=== PATIENT | male | born 1965 | race Caucasian/White ===

== ENCOUNTER 2021-01-19 07:03 | Emergency (ER) | payer OTHER, SELFPAY ==
[2021-01-19 07:49] VITALS: BP 150/88; PULSE 76; RESP 18; TEMP 36.6; O2SAT 97; BMI 28.7
--- NOTE | 2021-01-19 07:55 | ED.GENADULT ---
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 55-year-old male came in with a rectal pain that started 2 days ago, pain described as mild and intermittent only with bowel movements, pain is dull aching/pressure only with bowel movement, pain sometimes associated with bright red blood while wiping with the toilet paper, no viktoria rectal bleeding, no fever, no chills. Related Data Previous Rx's Medication Instructions Recorded nystatin 1 appl TOPICAL TID #30 g 01/19/21 Allergies Allergy/AdvReac Type Severity Reaction Status Date / Time oxycodone [Percocet] Allergy Unknown Unknown Verified 01/19/21 07:16 No Known Allergies Allergy Unverified 06/17/20 16:44 Review of Systems Review of Systems: All other systems are reviewed and are negative Constitutional: Reports as per HPI and Reports no additional constitutional complaints Eyes: Reports as per HPI and Reports no additional eye complaints Reports system reviewed and no additional complaints, except as documented Cardiovascular: Reports as per HPI and Reports no additional cardiovascular complaints Respiratory: Reports as per HPI and Reports no additional respiratory complaints Gastrointestinal: Reports as per HPI and Reports no additional gastrointestinal complaints Genitourinary: Reports no additional female genitourinary complaints Musculoskeletal: Reports no additional musculoskeletal complaints Skin/Breast: Reports system reviewed and no additional complaints, except as docu Psychiatric: Reports no additional psychiatric complaints Endocrine: Reports no additional endocrine complaints Hematologic/Lymphatic: Reports no additional hematologic/lymphatic complaints Allergic/Immunologic: Reports no additional allergic/immunologic complaints Reports system reviewed and no additional complaints, except as documented and Reports Abnormal speech present [facility] Past Medical History Medical History Asthma Diabetes HTN (hypertension) Social History Social History Alcohol intake: current Alcohol intake frequency: holidays/special occasions only Smoking Status: Never smoker Use of substances other than those prescribed or required for medical reasons: No Advance Directives: Yes Advance Directives Information Provided: Yes Advance Directives on File: No Physical Exam Vital Signs: Vital Signs: Last Vital Signs Temp 98.0 F 01/19/21 08:19 Pulse 76 01/19/21 08:19 Resp 18 01/19/21 08:19 BP 150/80 H 01/19/21 08:19 Pulse Ox 98 01/19/21 08:19 Body Mass Index 28.7 Vital signs have been reviewed as appeared to be correct. Blood pressure is elevated. Heart rate normal. Respiration rate normal. Temperature normal. Oxygen saturation normal. Appearance: Alert. Oriented X3. No acute distress. Head: Normal external exam. Normocephalic. Atraumatic. No Multani signs noted. No raccoon eyes noted Eyes: PERRLA. EOMI. Conjunctiva and sclera normal. Eyelids normal. ENT: TM's Normal. Pharynx normal. Uvula midline. Moist mucous membranes. No trismus noted. No drooling noted. No muffled voice noted. Neck: Normal inspection. Neck supple. FROM. No adenopathy. Thyroid Normal. No meningeal signs. No neck mass noted. CVS: Normal heart rate and rhythm. Heart sound normal. No murmurs noted. Pulses normal throughout. Respiratory: No respiratory distress. Painless inspiration. Breath sounds normal. No wheezes/rales/rhonchi noted. Chest nontender. No accessory muscle usage noted or decreased air movement noted. Abdomen: Soft and nontender. Bowel sounds normal in all 4 quadrants. No distention noted. No organomegaly noted. No visible injury noted. Rectal exam: 2 x 2 cm external hemorrhoid at 03:00 o'clock, mild tenderness to touch, no thrombosis is appreciated. : Uncircumcised, redness at the glans penis with white cottage cheese cover. Back: No CVA tenderness. Full range of motion noted. Skin: Skin warm and dry. Normal skin color. Normal skin turgor. No rashes/lesions/lacerations noted. Extremities: No lower extremity edema. Extremities exhibit normal range of motion. Extremities nontender. Neuro: Oriented X 3. No motor deficit. No sensory deficit. Reflexes normal. Course Course Course Narrative: Assessment and plan. 55-year-old male came in for evaluation of noncomplicated external hemorrhoid, will refer to surgery as an outpatient. Patient is diabetic with a mild noncomplicated balanitis. Patient found to be hyperglycemic in the emergency department he claimed that he did not take his glucose fashion this morning, patient was offered 5 units of insulin subQ but patient declined. Discharge Plan Discharge Clinical Impression: Balanitis Hemorrhoid Qualifiers: Hemorrhoid type: unspecified Qualified Code(s): K64.9 - Unspecified hemorrhoids Patient Disposition: Home, Self-Care Instructions: Hemorrhoids (ED) Prescriptions: New nystatin 100,000 unit/gram ointment 1 appl topical TID Qty: 30 RF: 0 Referrals: Saul Nash MD [Physician] - 2 days
[2021-01-19 08:19] VITALS: BP 150/80; PULSE 76; RESP 18; TEMP 36.7; O2SAT 98
[2021-01-19] MEDS: oxyCODONE HCl Immed Release 5 MG TABLET PO (08:26)
--- NOTE | 2021-01-19 08:37 | PC.NURSE ---
pt seen by provider, medicated per emar. pt asking to speak w provider again prior to discharge, provider aware.
[2021-01-19 09:04] LABS: Glucose, Whole Blood 372 mg/dL (60-115)
--- NOTE | 2021-01-19 09:04 | PC.NURSE ---
POC 372. Pt states that he did not take his metformin this morning and does not want any insulin at this time.
== END 2021-01-19 09:22 | disposition home or self-care (01) ==
PROVIDERS: Emergency Provider Emergency Medicine; PCP Family Medicine
DX: N48.1 Balanitis (principal); K64.4 Residual hemorrhoidal skin tags; E11.65 Type 2 diabetes mellitus with hyperglycemia; I10 Essential (primary) hypertension; J45.909 Unspecified asthma, uncomplicated; Z79.4 Long term (current) use of insulin
CPT/HCPCS: 82947; 99283; 99284

== ENCOUNTER → 2021-01-26 11:31 | Outpatient (BNVA) | payer OTHER, SELFPAY | PROVIDERS: PCP Family Medicine; Visit Provider Surgery | DX: K62.89 Other specified diseases of anus and rectum (principal) | CPT/HCPCS: 46600; 99202 ==

== ENCOUNTER 2021-02-08 06:04 | Day surgery (SDC) | payer OTHER, SELFPAY ==
[2021-02-02 12:56] VITALS: BMI 36.8
--- NOTE | 2021-02-07 08:30 | HO.ANESPROP2 ---
Documented by User: Ruth Araya 02/07/21 08:30 HPI - Anesthesia Eval Consult details Narrative: 55yo M for EUA, Excision of Anal Mass PMFSH Active Problems Active Problems: All Active Problems (Updated 02/02/21 @ 12:58 by Rebecca Griffin) Mass of anus (Acute) High BMI (Acute) Past Medical History Medical History Asthma Diabetes Elevated cholesterol High BMI History of COVID-19 HTN (hypertension) Mass of anus Family History Family History Mother Breast cancer Surgical History Surgical History H/O colonoscopy History of knee surgery Hx of umbilical hernia repair Social History Social History Alcohol intake: current Alcohol intake frequency: holidays/special occasions only Smoking Status: Never smoker Advance Directives Information Provided: No Meds Allergies Allergy/AdvReac Type Severity Reaction Status Date / Time No Known Allergies Allergy Verified 02/08/21 06:14 Home Medications Medication Instructions Recorded Confirmed Last Taken Type aspirin 81 mg tablet,delayed 81 mg PO DAILY 01/26/21 02/02/21 Unknown History release blood pressure test kit-large #1 01/26/21 01/26/21 Unknown History blood sugar diagnostic #10 ea 01/26/21 01/26/21 Unknown History blood-glucose meter #1 ea 01/26/21 01/26/21 Unknown History hydrochlorothiazide 25 mg tablet 25 mg PO DAILY 01/26/21 02/02/21 Unknown History hydrocortisone 1 % topical cream 1 appl TOPICAL DAILY 01/26/21 02/02/21 Unknown History lisinopril 30 mg tablet 30 mg PO DAILY 01/26/21 02/02/21 Unknown History metformin 1,000 mg tablet 1,000 mg PO BID 01/26/21 02/02/21 Unknown History pravastatin 20 mg tablet 20 mg PO BEDTIME 01/26/21 02/02/21 Unknown History Exam Exam Date and Time: February 07, 2021 0830 Height,Weight and Vital Signs: Height 5 ft 8 in Weight 110 kg Assessment and Plan Assessment Anesthesia Assessment: Chart Reviewed Documented by User: Shruthi Pelaez 02/08/21 07:21 PMFSH Past Medical History Medical History Asthma Diabetes Elevated cholesterol High BMI History of COVID-19 HTN (hypertension) Mass of anus Family History Family History Mother Breast cancer Surgical History Surgical History H/O colonoscopy History of knee surgery Hx of umbilical hernia repair Social History Social History Alcohol intake: current Alcohol intake frequency: holidays/special occasions only Smoking Status: Never smoker Advance Directives Information Provided: No Meds Allergies Allergy/AdvReac Type Severity Reaction Status Date / Time No Known Allergies Allergy Verified 02/08/21 06:14 Home Medications Medication Instructions Recorded Confirmed Last Taken Type aspirin 81 mg tablet,delayed 81 mg PO DAILY 01/26/21 02/02/21 Unknown History release blood pressure test kit-large #1 01/26/21 01/26/21 Unknown History blood sugar diagnostic #10 01/26/21 01/26/21 Unknown History blood-glucose meter #1 ea 01/26/21 01/26/21 Unknown History hydrochlorothiazide 25 mg tablet 25 mg PO DAILY 01/26/21 02/02/21 Unknown History hydrocortisone 1 % topical cream 1 appl TOPICAL DAILY 01/26/21 02/02/21 Unknown History lisinopril 30 mg tablet 30 mg PO DAILY 01/26/21 02/02/21 Unknown History metformin 1,000 mg tablet 1,000 mg PO BID 01/26/21 02/02/21 Unknown History pravastatin 20 mg tablet 20 mg PO BEDTIME 01/26/21 02/02/21 Unknown History Exam Airway Mallampati Class: III TM Dist: >3cm Neck ROM: Full Partial: Upper and Lower
[2021-02-08] VITALS (7 sets, daily range): BP systolic 114–152; BP diastolic 68–86; PULSE 76–100; RESP 16; TEMP 36.2–36.3; O2SAT 96–99
[2021-02-08 06:16] LABS: Glucose, Whole Blood 331 mg/dL (60-115)
[2021-02-08] MEDS: Lactated Ringers 1,000 ML 100 ML IVCONT (06:45)
[2021-02-08] MEDS: Insulin Regular, Human 100 UNIT/ML 3 ML VIAL SUBCUT (07:34)
--- NOTE | 2021-02-08 07:34 | MHC.SHP ---
Pre-Procedural Eval Section B Chief Complaint: Mass of anus Allergies: Allergies Allergy/AdvReac Type Severity Reaction Status Date / Time No Known Allergies Allergy Verified 02/08/21 06:14 Plan I have reviewed the history and physical and performed a pertinent physical examination on my patient. No changes have occurred unless specified.
--- NOTE | 2021-02-08 08:25 | W.PM.OPN ---
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 This was on the anal verge and appeared to be chronically sclerosed hemorrhoid versus a fibroepithelial polyp. He describes difficulty with hygiene as well as discomfort. He wanted to proceed with excision. He understood the technique of exam under anesthesia and excision of this anal mass. He was aware of the risks, benefits, and alternatives. He was brought to the operating room and placed in prone carley-knife position under general anesthesia via endotracheal tube. The perianal area was prepped and draped in the usual sterile fashion. A surgical timeout was done. The patient received Cefotan 2g IV preop. Examination of the anal orifice revealed a mass at the verge, soft, nonindurated, about 2 cm extending into the anoderm. I inserted the Meseret-Patterson retractor and examined the anal canal circumferentially. There were not of internal hemorrhoidal columns on both the left and right side with some external hemorrhoidal component. There were no fissures, induration or any other lesion. The mass on the left side was gently grasped with a Penningtong grasper. I made a figure of 8 stitch at the pedicle just proximal to the dentate line. I made an incision around this mass using a shayy [address] the perianal skin. I excised this mass above the plane of the sphincters using scissors. I closed the incision with a running chromic 3-0 stitch. Additional hemostatic figure of 8 sutures were placed. Once hemostasis was ensured, I infiltrated the perianal area with Marcaine .5% for postop analgesia and the procedure was completed. The patient tolerated the procedure well. Initial and final counts of sponges and instruments were correct. EBL was about 15 cc. The patient was extubated without difficulty and transferred to the with stable VS.
--- NOTE | 2021-02-08 08:35 | P.BOP_ITS ---
Brief Operative Note Date of Service: 02/08/21 Pre-op diagnosis: anal mass Post-op diagnosis: same Procedure: EUA, exc of anal mass Surgeon: Don Schulte MD Anesthesia: GETA Was an Office Services Clerk used for this Procedure?: No Estimated blood loss (mL): 15 Pathology: other (anal mass) Condition: stable Disposition: PACU
[2021-02-08] MEDS: oxyCODONE HCl Immed Release 5 MG TABLET 10 MG PO (09:00)
== END 2021-02-08 10:20 | disposition home or self-care (01) ==
PROVIDERS: PCP Family Medicine; Visit Provider Surgery
PROC: (CPT 46922; principal; 2021-02-08 07:30)
DX: K62.89 Other specified diseases of anus and rectum (principal); J45.909 Unspecified asthma, uncomplicated; I10 Essential (primary) hypertension; E11.9 Type 2 diabetes mellitus without complications; Z79.84 Long term (current) use of oral hypoglycemic drugs; Z79.82 Long term (current) use of aspirin; Z79.899 Other long term (current) drug therapy; Z86.16 Personal history of COVID-19
CPT/HCPCS: 46922; 82947; 88305; J1885; J2250; J2405; J3010

== ENCOUNTER → 2021-02-23 11:00 | Outpatient (BNVA) | payer OTHER, SELFPAY | PROVIDERS: PCP Family Medicine; Referring Provider Family Medicine; Visit Provider Surgery | DX: K62.89 Other specified diseases of anus and rectum (principal) | CPT/HCPCS: 99212 ==

== ENCOUNTER 2021-06-15 09:03 | Emergency (ER) | payer OTHER, SELFPAY ==
--- NOTE | ~2021-06-15 | US_ITS ---
EXAMINATION: US SCROTUM CLINICAL INFORMATION: Left testicle pain. COMPARISON: Previous scrotal ultrasound November 2018. TECHNIQUE: A sonogram of the scrotum was performed assessing jorge-scale appearance and color Doppler flow. Spectral Doppler analysis of the arterial and venous flow were performed in the testes bilaterally. FINDINGS: RIGHT: Right testicle measures 2.7 x 1.4 x 1.9 cm, volume 3.8 mL and is smaller than the left. No focal testicular parenchymal lesions are visualized. The contour of the anterior right testicle is slightly irregular and echogenicity is slightly heterogeneous. Spectral Doppler analysis of the arterial and venous flow is normal in the right testis. Right epididymal head is normal in size. No right hydrocele or varicocele is seen. Right epididymal Doppler flow is normal. There is a 0.6 x 0.5 x 0.4 cm simple cyst in the right anterior scrotum. LEFT: Left testicle measures 3.6 x 1.9 x 2.9 cm, volume 10 mL. No focal testicular parenchymal lesions are visualized. Spectral Doppler analysis of the arterial and venous flow is normal in the left testis. Left epididymal head is normal in size. No left hydrocele is seen. There is a small left varicocele. Left epididymal Doppler flow is normal. US/US scrotum doppler IMPRESSION: Small slightly heterogeneous right testicle, question changes related to old trauma or infection. 5 mm simple right scrotal cyst. Small left varicocele.
--- NOTE | ~2021-06-15 | US_ITS ---
EXAMINATION: US SCROTUM CLINICAL INFORMATION: Left testicle pain. COMPARISON: Previous scrotal ultrasound November 2018. TECHNIQUE: A sonogram of the scrotum was performed assessing jorge-scale appearance and color Doppler flow. Spectral Doppler analysis of the arterial and venous flow were performed in the testes bilaterally. FINDINGS: RIGHT: Right testicle measures 2.7 x 1.4 x 1.9 cm, volume 3.8 mL and is smaller than the left. No focal testicular parenchymal lesions are visualized. The contour of the anterior right testicle is slightly irregular and echogenicity is slightly heterogeneous. Spectral Doppler analysis of the arterial and venous flow is normal in the right testis. Right epididymal head is normal in size. No right hydrocele or varicocele is seen. Right epididymal Doppler flow is normal. There is a 0.6 x 0.5 x 0.4 cm simple cyst in the right anterior scrotum. LEFT: Left testicle measures 3.6 x 1.9 x 2.9 cm, volume 10 mL. No focal testicular parenchymal lesions are visualized. Spectral Doppler analysis of the arterial and venous flow is normal in the left testis. Left epididymal head is normal in size. No left hydrocele is seen. There is a small left varicocele. Left epididymal Doppler flow is normal. US/US scrotum IMPRESSION: Small slightly heterogeneous right testicle, question changes related to old trauma or infection. 5 mm simple right scrotal cyst. Small left varicocele.
[2021-06-15 09:23] VITALS: BP 135/70; PULSE 78; RESP 16; TEMP 36.6; O2SAT 98; BMI 36.9
[2021-06-15 09:46] LABS: MANUAL DIFF FLAG NO
[2021-06-15 09:47] LABS: Basophils Absolute Auto 0.1 X10*3/uL (0.0-0.2); Basophils Percent Auto 0.6 % (0-2); Eosinophils Absolute Auto 0.4 X10*3/uL (0.0-0.4); Eosinophils Percent Auto 4.5 % (0-4); Hematocrit 42.9 % (42-52); Hemoglobin 14.6 g/dl (14.0-18.0); Imm Gran Abs Auto 0.03 X10*3/uL (0.00-0.03); Imm Gran Pct Auto 0.3 % (0.0-0.4); Lymphocytes Absolute Auto 1.9 X10*3/uL (1.2-4.9); Lymphocytes Percent Auto 21.7 % (20-40); Mean Corpuscular Hemoglobin 29.7 pg (27.0-33.0); Mean Corpuscular Volume 87.4 fL (80-98); Mean Platelet Volume 10.4 fL (9.4-12.4); Monocytes Absolute Auto 0.5 X10*3/uL (0.1-1.2); Monocytes Percent Auto 5.8 % (2-11); Neutrophils Absolute Auto 5.9 X10*3/uL (2.0-8.3); Neutrophils Percent Auto 67.1 % (45-73); Platelet Count 289 X10*3/uL (160-400); Red Blood Count 4.91 X10*6/uL (4.60-5.80); Red Cell Distribution Width 12.7 % (11.0-16.0); White Blood Count 8.8 X10*3/uL (4.8-10.8)
[2021-06-15 09:48] LABS: Appearance Urine CLEAR; Color Urine YELLOW; Glucose Urine UA NEG (NEG); Leukocyte Esterase Urine NEG (NEG); Nitrite Urine NEG (NEG); Urine Blood NEG (NEG); Urine Ketones NEG (NEG); Urine Protein NEG (NEG-TRACE)
[2021-06-15 10:06] LABS: Anion Gap 15 (12-20); Blood Urea Nitrogen 22 mg/dL (9-16); Calcium 9.9 mg/dL (8.4-10.2); Carbon Dioxide 22 mmol/L (22-29); Chloride 105 mmol/L (96-108); Creatinine Clr Calc Pharmacy 94.2; Estimated Glomerular Filt Rate > 60; Glucose Random 207 mg/dL (60-115); Potassium 4.5 mmol/L (3.3-5.1); Sodium 137 mmol/L (135-145)
--- NOTE | 2021-06-15 10:21 | ED.ABDPAIN ---
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 Mode of arrival: ambulatory Limitations: no limitations History of Present Illness MD elicited complaint: other (L testicular and scrotal pain) Pertinent past history: none Onset (ago): day(s) (2) Pain Consistency: intermittent Location: suprapubic and groin Severity: moderate Quality: aching Radiation: none Exacerbating factors: nothing Relieving factors: nothing Associated symptoms: nausea Related Data Home Medications Medication Instructions Recorded Confirmed aspirin 81 mg tablet,delayed 81 mg PO DAILY 01/26/21 02/02/21 release blood pressure test kit-large #1 ea 01/26/21 01/26/21 blood sugar diagnostic #10 ea 01/26/21 01/26/21 blood-glucose meter #1 ea 01/26/21 01/26/21 hydrochlorothiazide 25 mg tablet 25 mg PO DAILY 01/26/21 02/02/21 hydrocortisone 1 % topical cream 1 appl TOPICAL DAILY 01/26/21 02/02/21 lisinopril 30 mg tablet 30 mg PO DAILY 01/26/21 02/02/21 metformin 1,000 mg tablet 1,000 mg PO BID 01/26/21 02/02/21 pravastatin 20 mg tablet 20 mg PO BEDTIME 01/26/21 02/02/21 Previous Rx's Medication Instructions Recorded nystatin 100,000 unit/gram topical 1 appl TOPICAL TID #30 g 01/19/21 ointment docusate sodium 100 mg capsule 100 mg PO BID #60 cap 02/08/21 (Colace) ibuprofen 600 mg tablet 600 mg PO Q6H PRN #30 tab 02/08/21 oxycodone-acetaminophen 5 mg-325 1 - 2 tab PO Q4-6H PRN #30 tab 02/08/21 mg tablet (Percocet) levofloxacin 500 mg tablet 500 mg PO DAILY 7 Days #7 tab 06/15/21 Allergies Allergy/AdvReac Type Severity Reaction Status Date / Time No Known Allergies Allergy Verified 02/23/21 11:19 Review of Systems Review of Systems Constitutional : No Weight loss, No Fever, No Chills ENT/Mouth : No sore throat, No Rhinorrhea Eyes: No Swelling, No Redness Cardiovascular : No Chest Pain, No SOB, NoEdema Respiratory : No Cough, No Sputum, No Wheezing Gastrointestinal : Positive Nausea, no Vomiting, no Diarrhea, no abdominal Pain, No Hematochezia, No Melena Genitourinary : No Dysuria, No Urinary Frequency, No Hematuria, No Urgency , pos L scrotal pain Musculoskeletal : No joint pain, No Myalgias, No Joint Swelling Skin : No Skin Lesions, No rash Neuro : No Weakness, No Numbness, No Dizziness, No Headache Psych : No Anxiety/Panic, No Depression Heme/Lymph: No Bruising, No Lymphadenopathy Endocrine : No Polyuria, No Polydipsia All other systems reviewed and are negative. Physical Exam Vital Signs: Vital Signs: Last Vital Signs Temp 98.3 F 06/15/21 10:59 Pulse 68 06/15/21 13:08 Resp 19 06/15/21 13:08 BP 124/83 06/15/21 13:08 Pulse Ox 97 06/15/21 13:08 Body Mass Index 36.9 Appearance: Alert. Oriented X3. No acute distress. Eyes: Pupils equal, round and reactive to light. ENT: Pharynx normal. Neck: Normal inspection. Neck supple. CVS: Normal heart rate and rhythm. Pulses normal. Respiratory: No respiratory distress. Breath sounds normal. Abdomen: Soft and nontender. : L scrotal and spermatic cord ttp no mass/color changes no crepitus or signs of infection noted Skin: Skin warm and dry. Normal skin color. Normal skin turgor. Extremities: No lower extremity edema. No calf ttp Neuro: Oriented X 3. No motor deficit. No sensory deficit. Course Course Course Narrative: groin pain reported pain over spermatic cord - will treat as possible epidydimmitis - start on levofloxacin and refer to PCP again has no abdominal pain MDM - Abdominal Pain MDM Narrative Medical decision making narrative: 55 yo male with DM, HTN here with 2 days of L scrotal pain - at this time will need labs, UA, CT NG though likely E. Coli given his age. US to evaluate cord itself. He is not toxic he has no mass seen in L groin and has no abd ttp dispo per results and findings Lab Data Result diagrams: 06/15/21 09:33 06/15/21 09:33 Labs: Lab Results 06/15/21 06/15/21 06/15/21 Range/Units 09:33 09:33 09:33 WBC 8.8 (4.8-10.8) X10*3/uL RBC 4.91 (4.60-5.80) X10*6/uL Hgb 14.6 (14.0-18.0) g/dl Hct 42.9 (42-52) % MCV 87.4 (80-98) fL MCH 29.7 (27.0-33.0) pg MCHC 34.0 (31.0-36.0) g/dl RDW 12.7 (11.0-16.0) % Plt Count 289 (160-400) X10*3/uL MPV 10.4 (9.4-12.4) fL Immature Gran % (Auto) 0.3 (0.0-0.4) % Neut % (Auto) 67.1 (45-73) % Lymph % (Auto) 21.7 (20-40) % Dolores % (Auto) 5.8 (2-11) % Eos % (Auto) 4.5 H (0-4) % Baso % (Auto) 0.6 (0-2) % Lymph # (Auto) 1.9 (1.2-4.9) X10*3/uL Dolores # (Auto) 0.5 (0.1-1.2) X10*3/uL Eos # (Auto) 0.4 (0.0-0.4) X10*3/uL Baso # (Auto) 0.1 (0.0-0.2) X10*3/uL Abs Immat Gran (auto) 0.03 (0.00-0.03) X10*3/uL Absolute Neuts (auto) 5.9 (2.0-8.3) X10*3/uL Absolute Nucleated RBC 0.000 (0.0-0.012) X10*3/uL Nucleated RBC % (auto) 0.0 (0.0-0.2) /100WBC Sodium 137 (135-145) mmol/L Potassium 4.5 (3.3-5.1) mmol/L Chloride 105 (96-108) mmol/L Carbon Dioxide 22 (22-29) mmol/L Anion Gap 15 (12-20) BUN 22 H (9-16) mg/dL Creatinine 1.10 (0.5-1.4) mg/dL Estim Creat Clear Calc 94.2 Estimated GFR > 60 Random Glucose 207 H (60-115) mg/dL Calcium 9.9 (8.4-10.2) mg/dL Total Bilirubin 0.6 (0.0-1.0) mg/dL Direct Bilirubin 0.2 (0.0-0.5) mg/dL AST 21 (5-37) U/L ALT 16 (0-40) U/L Alkaline Phosphatase 67 (39-117) U/L Total Protein 6.9 (6.5-8.0) g/dL Albumin 4.1 (3.5-5.0) g/dL Lipase 33 (8-78) U/L Urine Color YELLOW Urine Appearance CLEAR Urine pH 6.0 (5.0-8.0) Ur Specific [place] 1.020 (1.005-1.025) Urine Protein NEG (NEG-TRACE) MG/DL Urine Glucose (UA) NEG (NEG) MG/DL Urine Ketones NEG (NEG) MG/DL Urine Blood NEG (NEG) Urine Nitrite NEG (NEG) Ur Leukocyte Esterase NEG (NEG) Discharge Plan Discharge Clinical Impression: Left varicocele, Epididymitis Patient Disposition: Home, Self-Care Instructions: Epididymitis (ED), Varicocele (ED) Additional Instructions: return to ED for any worsening symptoms or concerns Prescriptions: New levofloxacin 500 mg tablet 500 mg PO DAILY 7 Days Qty: 7 RF: 0 No Action docusate sodium [Colace] 100 mg capsule 100 mg PO BID Qty: 60 RF: 2 ibuprofen 600 mg tablet 600 mg PO Q6H PRN (Reason: pain) Qty: 30 RF: 0 oxycodone-acetaminophen [Percocet] 5-325 mg tablet 1 - 2 tab PO Q4-6H PRN (Reason: pain) Qty: 30 RF: 0 nystatin 100,000 unit/gram ointment 1 appl topical TID Qty: 30 RF: 0 lisinopril 30 mg tablet 30 mg PO DAILY RF: 0 hydrochlorothiazide 25 mg tablet 25 mg PO DAILY RF: 0 aspirin 81 mg tablet,delayed release (DR/EC) 81 mg PO DAILY RF: 0 metformin 1,000 mg tablet 1,000 mg PO BID RF: 0 (DME) FreeStyle Lite Strips Strip See Rx Instructions ea Not Applicable .GeneraytorPPLY Qty: 10 RF: 0 pravastatin 20 mg tablet 20 mg PO BEDTIME RF: 0 hydrocortisone 1 % cream 1 appl topical DAILY RF: 0 (DME) blood pressure test kit-large Kit See Rx Instructions ea .ROUTE .MEDSUPPLY Qty: 1 RF: 0 (DME) blood-glucose meter Kit See Rx Instructions ea Not Applicable .MEDSUPPLY Qty: 1 RF: 0 Referrals: Christian Mohamud MD [Physician] - 2 weeks (if not better) Print Language: [place] [facility] Past Medical History Attestation statement: The following information was validated with the patient. Medical History Asthma Diabetes Elevated cholesterol High BMI History of COVID-19 HTN (hypertension) Mass of anus Surgical History H/O colonoscopy History of excision of mass History of knee surgery Hx of umbilical hernia repair Family History Family History Mother Breast cancer Social History Social History (Updated 06/15/21 @ 10:21 by Mela Mckeon DO) Alcohol intake: current Alcohol intake frequency: holidays/special occasions only Patient Tobacco Use Status: Never used Tobacco Advance Directives: No Advance Directives Information Provided: No
[2021-06-15 10:47] LABS: Alanine Aminotransferase 16 U/L (0-40); Albumin Level 4.1 g/dL (3.5-5.0); Alkaline Phosphatase 67 U/L (39-117); Aspartate Amino Transferase 21 U/L (5-37); Bilirubin Direct 0.2 mg/dL (0.0-0.5); Bilirubin Total 0.6 mg/dL (0.0-1.0); Lipase 33 U/L (8-78); Total Protein 6.9 g/dL (6.5-8.0)
[2021-06-15 10:59] VITALS: BP 122/69; PULSE 74; RESP 16; TEMP 36.8; O2SAT 98
[2021-06-15] MEDS: Acetaminophen 325 MG TABLET 650 MG PO (11:13)
[2021-06-15 13:08] VITALS: BP 124/83; PULSE 68; RESP 19; O2SAT 97
[2021-06-15 13:45] VITALS: BP 133/78; PULSE 77; RESP 18; O2SAT 98
[2021-06-15 13:58] LABS: CT PCR NOT DETECTED (Not Detect.); NG PCR NOT DETECTED (Not Detect.)
== END 2021-06-15 13:50 | disposition home or self-care (01) ==
PROVIDERS: Emergency Provider Emergency Medicine; PCP Family Medicine
DX: N45.1 Epididymitis (principal); I86.1 Scrotal varices; N50.812 Left testicular pain; N50.811 Right testicular pain; Z79.899 Other long term (current) drug therapy; Z79.82 Long term (current) use of aspirin
CPT/HCPCS: 36415; 76870; 80048; 80076; 81003; 83690; 85025; 87491; 87591; 93975; 99283; 99284

== ENCOUNTER 2023-04-09 | Outpatient (REF) | payer OTHER, SELFPAY | END 2023-04-09 00:01 | disposition home or self-care (01) | LOC: HO.HHCL | PROVIDERS: Visit Provider Internal Medicine | DX: J39.2 Other diseases of pharynx (principal) | CPT/HCPCS: 87070 ==

== ENCOUNTER 2023-06-07 11:49 | Emergency (ER) | payer OTHER, SELFPAY ==
--- NOTE | ~2023-06-07 | XR_ITS ---
EXAMINATION: XR CHEST 2 VIEW CLINICAL INFORMATION: Chest pain COMPARISON: 06/01/2020 TECHNIQUE: PA and lateral views of the chest obtained. FINDINGS: A 9 mm radiodense nodule at the right lung base is unchanged. Otherwise, the lungs are clear. There are no pleural effusions. The cardiomediastinal silhouette is stable. XR/XR chest 2V IMPRESSION: No acute cardiopulmonary disease or interval change since 06/01/2020.
--- NOTE | 2023-06-07 11:52 | ECG_ITS ---
Test Reason : CP Blood Pressure : / mmHG Vent. Rate : 109 BPM Atrial Rate : 109 BPM P-R Int : 150 ms QRS Dur : 084 ms QT Int : 340 ms P-R-T Axes : 043 -12 027 degrees QTc Int : 457 ms Sinus tachycardia Incomplete right bundle branch block Possible Inferior infarct (cited on or before 24-APR-2016) Possible Anterolateral infarct , age undetermined Abnormal ECG When compared with ECG of 24-APR-2016 14:31, Vent. rate has increased BY 40 BPM Questionable change in initial forces of Inferior leads Referred By: Vickie Lewis Electronically Signed By:SHIRA PLASCENCIA
[2023-06-07 12:06] VITALS: BP 148/75; PULSE 110; RESP 20; TEMP 36.8; O2SAT 98; BMI 32.2
[2023-06-07 12:06] LABS: MANUAL DIFF FLAG NO
--- NOTE | 2023-06-07 12:07 | ED_ITS ---
HPI - Chest Pain General Chief Complaint: Psychiatric Symptoms Stated Complaint: chest pain Time Seen by Provider: 06/07/23 17:02 Source: patient and family Mode of arrival: ambulatory Limitations: no limitations History of Present Illness HPI narrative: Patient comes to the emergency room complaining of palpitations, chest pressure that has been going on for 12+ hours. Patient states that he has severe anxiety, patient's states that the patient takes Haldol for delusions of persecution. Related Data Home Medications Medication Instructions Recorded Confirmed aspirin 81 mg tablet,delayed 81 mg PO DAILY 01/26/21 02/02/21 release blood pressure test kit-large #1 ea 01/26/21 01/26/21 blood sugar diagnostic #10 ea 01/26/21 01/26/21 blood-glucose meter #1 ea 01/26/21 01/26/21 hydrochlorothiazide 25 mg tablet 25 mg PO DAILY 01/26/21 02/02/21 hydrocortisone 1 % topical cream 1 appl topical DAILY 01/26/21 02/02/21 lisinopril 30 mg tablet 30 mg PO DAILY 01/26/21 02/02/21 metformin 1,000 mg tablet 1,000 mg PO BID 01/26/21 02/02/21 pravastatin 20 mg tablet 20 mg PO BEDTIME 01/26/21 02/02/21 Previous Rx's Medication Instructions Recorded nystatin 100,000 unit/gram topical 1 appl topical TID #30 grams 01/19/21 ointment docusate sodium 100 mg capsule 100 mg PO BID #60 caps 02/08/21 (Colace) ibuprofen 600 mg tablet 600 mg PO Q6H PRN pain #30 tabs 02/08/21 oxycodone-acetaminophen 5 mg-325 1 - 2 tab PO Q4-6H PRN pain #30 02/08/21 mg tablet (Percocet) tabs levofloxacin 500 mg tablet 500 mg PO DAILY 7 days #7 tabs 06/15/21 Allergies Allergy/AdvReac Type Severity Reaction Status Date / Time No Known Allergies Allergy Verified 02/23/21 11:19 Review of Systems 2 Review of Systems: Constitutional : No Weight loss, No Fever, No Chills, No Night Sweats, No Fatigue, No Malaise ENT/Mouth : No Hearing loss, No Ear Pain, No Nasal Congestion, No Sinus Pain, No Hoarseness, No sore throat, No Rhinorrhea, No Swallowing Difficulty Eyes: No Eye Pain, No Swelling, No Redness, No Foreign Body, No Discharge, No Vision Changes Cardiovascular : Complaining of 12+ hours of chest pain/pressure/anxiety No SOB, No Dyspnea on Exertion, No Orthopnea, No Edema, No Palpitations Respiratory : No Cough, No Sputum, No Wheezing, No Smoke Exposure, No Dyspnea Gastrointestinal : No Nausea, No Vomiting, No Diarrhea, No Constipation, No abdominal Pain, No Hematochezia, No Melena Genitourinary : no irregular bleeding, No Dysuria, No Urinary Frequency, No Hematuria, No Urinary Incontinence, No Urgency, No Flank Pain, No Urinary Flow Changes, No Hesitancy Musculoskeletal : No joint pain, No Myalgias, No Joint Swelling Skin : No Skin Lesions, No rash Neuro : No Weakness, No Numbness, No Paresthesias, No Loss of Consciousness, No Dizziness, No Headache Psych : Complaining of continued his anxiety, No Depression, No SI/HI/AH/VH, No Social Issues, Heme/Lymph: No Bruising, No Bleeding,No Lymphadenopathy Endocrine : No Polyuria, No Polydipsia, No Temperature Intolerance [facility] Past Medical History Medical History (Updated 06/08/23 @ 00:01 by Radhames Kenny) Hard of hearing Persecution, delusion Anxiety History of COVID-19 Elevated cholesterol Mass of anus High BMI HTN (hypertension) Diabetes Asthma Surgical History History of excision of mass H/O colonoscopy Hx of umbilical hernia repair History of knee surgery Family History Family History Mother Breast cancer Social History Social History (Updated 06/15/21 @ 10:21 by Grace Mckeon DO) Alcohol intake: current Alcohol intake frequency: holidays/special occasions only Patient Tobacco Use Status: Never used Tobacco Physical Exam 2 Vital Signs: Vital Signs: Last Vital Signs Temp 98 F 06/07/23 18:41 Pulse 108 H 06/07/23 18:41 Resp 16 06/07/23 18:41 BP 154/85 H 06/07/23 18:41 Pulse Ox 97 06/07/23 18:41 O2 Del Method Room Air 09/07/23 18:41 BMI result Body Mass Index 32.2 Const: Other: Appearance: Alert. Oriented X3. No acute distress. Eyes: Pupils equal, round and reactive to light. ENT: Pharynx normal. Hard of hearing Neck: Normal inspection. Neck supple. No lymph nodes noted. No crepitus CVS: Normal heart rate and rhythm. Pulses normal. Normal S1 and S2 Respiratory: No respiratory distress. Breath sounds normal. No Wheezing. No rales Abdomen: Soft and nontender. No rigidity. No distention. Skin: Skin warm and dry. Normal skin color. Normal skin turgor. Extremities: No lower extremity edema. No Lacerations. No Rash Neuro: Oriented X 3. No motor deficit. No sensory deficit. Moving all extremities. No slurred speech. CN 2 through 12 grossly intact Psych: calm, cooperative, anxious Course Course Course Narrative: MIC 12:10PM 57yoM presenting to the ED with c/o of midsternal palpitations for the past few days. Associated sweats per . Patient also reports shortness of breath, dyspnea on exertion. Reports he also suffers from anxiety unsure if it is related to this. Has been on Haldol although in the past week has had his decreased from 5 mg to 2mg and new medication of Fluovoxamine 25 mg. He reports increased anxiety. Denies any SI or HI. reports that he occasionally does have auditory hallucinations. Denies any dizziness, chest pain, cough, congestion, abdominal pain, nausea vomiting, diarrhea or any other symptoms complaints or concerns at this time. Patient appears very guarded and anxious. Although at side helps with the history. Plan: Labs, chest x-ray and EKG ordered at this time patient is stable to go back to the waiting room to be evaluated by provider in the ED. H&P referred to next provider. Medications Administered Discontinued Medications Generic Name Dose Route Start Last Admin Trade Name Freq PRN Reason Stop Dose Admin Olanzapine 5 mg 06/07/23 19:44 06/07/23 19:49 Olanzapine 5 Mg Tablet PO 06/07/23 19:45 5 mg ONCE ONE Administration Medical Decision Making Medical Decision Making [facility] Narrative: -my interpretation of labs: Normal hematology and chemistry, normal troponin. Magnesium 1.5, patient asymptomatic, no need to be repleted at this time, normal 1.6 -my interpretation chest x-ray: No infiltrates -my interpretation of EKG: Sinus tachycardia, heart rate 109, no ST segment depression or elevation, no T-wave inversion, QTC 457 -I discussed the labs and imaging and EKG with the patient, patient feeling better. Patient requesting to be seen by [facility]. -care team consult pending -physician observation started at 1840 -the care team evaluated the patient, patient is requesting to be discharged, given outpatient resources. -patient not SI or HI, Section 12 not indicated. Patient going home with his Differential Diagnosis Differential Diagnoses: The differential diagnosis associated with the presentation includes (ACS, musculoskeletal pain, costochondritis, anxiety) Admission/Observation Consideration of admission/observation: Escalation of care including admission/observation considered (Patient came in complaining of chest pain, admission was considered) Lab Data MDM Lab Attestation statement: I reviewed the patient's lab results. 06/07/23 12:00 06/07/23 12:00 Labs: Lab Results 06/07/23 06/07/23 06/07/23 Range/Units 12:00 12:05 15:29 WBC 10.5 (4.8-10.8) X10*3/uL RBC 4.96 (4.60-5.80) X10*6/uL Hgb 15.0 (14.0-18.0) g/dl Hct 42.8 (42.0-52.0) % MCV 86.3 (80.0-98.0) fL MCH 30.2 (27.0-33.0) pg MCHC 35.0 (31.0-36.0) g/dl RDW 12.5 (11.0-16.0) % Plt Count 326 (160-400) X10*3/uL MPV 9.9 (9.4-12.4) fL Immature Gran % (Auto) 0.3 (0.0-0.4) % Neut % (Auto) 69.0 (45-73) % Lymph % (Auto) 21.4 (20-40) % [place] % (Auto) 5.6 (2-11) % Eos % (Auto) 3.2 (0-4) % Baso % (Auto) 0.5 (0-2) % Lymph # (Auto) 2.2 (1.2-4.9) X10*3/uL [place] # (Auto) 0.6 (0.1-1.2) X10*3/uL Eos # (Auto) 0.3 (0.0-0.4) X10*3/uL Baso # (Auto) 0.1 (0.0-0.2) X10*3/uL Abs Immat Gran (auto) 0.03 (0.00-0.03) X10*3/uL Absolute Neuts (auto) 7.2 (2.0-8.3) x10*3/uL Absolute Nucleated RBC 0.000 (0.0-0.012) X10*3/uL Nucleated RBC % (auto) 0.0 (0.0-0.2) /100WBC PT 10.9 L (11.1-13.3) SEC INR 0.9 (0.9-1.1) Sodium 136 (135-145) mmol/L Potassium 3.7 (3.3-5.1) mmol/L Chloride 104 (96-108) mmol/L Carbon Dioxide 22 (22-29) mmol/L Anion Gap 14 (12-20) BUN 18 H (9-16) mg/dL Creatinine 0.90 (0.5-1.4) mg/dL Estim Creat Clear Calc 104.9 Estimated GFR > 60 Random Glucose 176 H (60-115) mg/dL Calcium 10.1 (8.4-10.2) mg/dL Magnesium 1.5 L (1.6-2.6) mg/dL Total Bilirubin 0.4 (0.0-1.0) mg/dL AST 18 (5-37) U/L ALT 12 (0-40) U/L Alkaline Phosphatase 74 (39-117) U/L Troponin I High Sens < 2.7 < 2.7 (<3.5-35.0) ng/L Total Protein 7.3 (6.5-8.0) g/dL Albumin 4.1 (3.5-5.0) g/dL Urine Color Yellow Urine Appearance Clear Urine pH 5.5 (5.0-9.0) Ur Specific [place] 1.010 (1.005-1.025) Urine Protein Negative (Neg-Trace) mg/dL Urine Glucose (UA) Negative (Negative) mg/dL Urine Ketones Negative (Negative) mg/dL Urine Blood Negative (Negative) Urine Nitrite Negative (Negative) Ur Leukocyte Esterase Negative (Negative) Urine Opiates Screen Not Detected (Not Detect) Urine Fentanyl Screen Not Detected (Not Detect) Ur Barbiturates Screen Not Detected (Not Detect) Ur Phencyclidine Scrn Not Detected (Not Detect) Ur Amphetamines Screen Not Detected (Not Detect) U Benzodiazepines Scrn Not Detected (Not Detect) Urine Cocaine Screen Not Detected (Not Detect) U Marijuana (THC) Screen Not Detected (Not Detect) Independent Interpretation I performed an independent interpretation of an: Plain X-Ray Radiology Impression Discussion of test interpretation with radiology: I have reviewed the radiologist's reading. Radiologist Impression: FINDINGS: A 9 mm radiodense nodule at the right lung base is unchanged. Otherwise, the lungs are clear. There are no pleural effusions. The cardiomediastinal silhouette is stable. XR/XR chest 2V IMPRESSION: No acute cardiopulmonary disease or interval change since 06/01/2020 Independent Historian Clinical information obtained from an independent historian. History obtained from or confirmed by: Spouse Chronic Conditions Patient?s care impacted by: Other (Anxiety) Critical Care Time Critical Care Time Total Critical Care Time: 60 Attestation: I have personally provided critical care time. Time includes review of lab data, radiology results, discussion with consultants, and monitoring for potential decompensation. Intervention performed as documented. Discharge Plan Discharge Clinical Impression: Atypical chest pain, Anxiety Patient Disposition: Home, Self-Care Instructions: Anxiety (ED) Additional Instructions: Please follow-up with your primary care physician tomorrow. If you have any worsening or new symptoms, please return to the emergency room or call 911 Prescriptions: No Action docusate sodium [Colace] 100 mg capsule 100 mg PO BID Qty: 60 2RF ibuprofen 600 mg tablet 600 mg PO Q6H PRN (Reason: pain) Qty: 30 0RF oxycodone-acetaminophen [Percocet] 5-325 mg tablet 1 - 2 tab PO Q4-6H PRN (Reason: pain) Qty: 30 0RF nystatin 100,000 unit/gram ointment 1 appl topical TID Qty: 30 0RF levofloxacin 500 mg tablet 500 mg PO DAILY 7 Days Qty: 7 0RF lisinopril 30 mg tablet 30 mg PO DAILY hydrochlorothiazide 25 mg tablet 25 mg PO DAILY aspirin 81 mg tablet,delayed release (DR/EC) 81 mg PO DAILY metformin 1,000 mg tablet 1,000 mg PO BID (DME) FreeStyle Lite Strips Strip See Rx Instructions Not Applicable .MEDSUPPLY Qty: 10 Rx Instructions: As directed pravastatin 20 mg tablet 20 mg PO BEDTIME hydrocortisone 1 % cream 1 appl topical DAILY (DME) blood pressure test kit-large Kit See Rx Instructions .ROUTE .MEDSUPPLY Qty: 1 Rx Instructions: As directed (DME) blood-glucose meter Kit See Rx Instructions Not Applicable .MEDSUPPLY Qty: 1 Rx Instructions: As directed Stand Alone Forms: Work/School Release Interventions: [place]-Suicide Risk Severity Scale Last Done: 06/07/23 19:37 ED Discharge Assessment Last Done: 06/07/23 19:37 Discharge Date/Time: 06/07/23 20:19
[2023-06-07 12:08] LABS: Basophils Absolute Auto 0.1 X10*3/uL (0.0-0.2); Basophils Percent Auto 0.5 % (0-2); Eosinophils Absolute Auto 0.3 X10*3/uL (0.0-0.4); Eosinophils Percent Auto 3.2 % (0-4); Hematocrit 42.8 % (42.0-52.0); Imm Gran Abs Auto 0.03 X10*3/uL (0.00-0.03); Imm Gran Pct Auto 0.3 % (0.0-0.4); Lymphocytes Absolute Auto 2.2 X10*3/uL (1.2-4.9); Lymphocytes Percent Auto 21.4 % (20-40); Mean Corpuscular Hemoglobin 30.2 pg (27.0-33.0); Mean Corpuscular Volume 86.3 fL (80.0-98.0); Mean Platelet Volume 9.9 fL (9.4-12.4); Monocytes Absolute Auto 0.6 X10*3/uL (0.1-1.2); Monocytes Percent Auto 5.6 % (2-11); Neutrophils Absolute Auto 7.2 x10*3/uL (2.0-8.3); Platelet Count 326 X10*3/uL (160-400); Red Blood Count 4.96 X10*6/uL (4.60-5.80); Red Cell Distribution Width 12.5 % (11.0-16.0); White Blood Count 10.5 X10*3/uL (4.8-10.8)
[2023-06-07 12:23] LABS: Alanine Aminotransferase 12 U/L (0-40); Albumin Level 4.1 g/dL (3.5-5.0); Alkaline Phosphatase 74 U/L (39-117); Anion Gap 14 (12-20); Aspartate Amino Transferase 18 U/L (5-37); Bilirubin Total 0.4 mg/dL (0.0-1.0); Blood Urea Nitrogen 18 mg/dL (9-16); Calcium 10.1 mg/dL (8.4-10.2); Carbon Dioxide 22 mmol/L (22-29); Chloride 104 mmol/L (96-108); Creatinine Clr Calc Pharmacy 104.9; Estimated Glomerular Filt Rate > 60; Glucose Random 176 mg/dL (60-115); Magnesium 1.5 mg/dL (1.6-2.6); Potassium 3.7 mmol/L (3.3-5.1); Sodium 136 mmol/L (135-145); Total Protein 7.3 g/dL (6.5-8.0)
[2023-06-07 12:23] LABS: Appearance Urine Clear; Color Urine Yellow; Glucose Urine UA Negative (Negative); Leukocyte Esterase Urine Negative (Negative); Nitrite Urine Negative (Negative); PH 5.5 (5.0-9.0); Urine Blood Negative (Negative); Urine Ketones Negative (Negative); Urine Protein Negative (Neg-Trace)
[2023-06-07 12:34] LABS: Troponin-I High Sensitivity < 2.7 ng/L (<3.5-35.0)
[2023-06-07 12:54] LABS: INTERNATIONAL NORM RATIO 0.9 (0.9-1.1); Prothrombin Time 10.9 SEC (11.1-13.3)
[2023-06-07 16:18] LABS: Troponin-I High Sensitivity < 2.7 ng/L (<3.5-35.0)
[2023-06-07 17:43] LABS: Amphetamine Screen Urine Not Detected (Not Detect); Barbiturates, Urine Not Detected (Not Detect); Benzodiazepines Screen Urine Not Detected (Not Detect); Cannabinoid Screen Urine Not Detected (Not Detect); Cocaine Screen Urine Not Detected (Not Detect); Fentanyl, urine Not Detected (Not Detect); Opiate Screen Urine Not Detected (Not Detect); Phencyclidine Screen Urine Not Detected (Not Detect)
--- NOTE | 2023-06-07 18:00 | PC.NURSE ---
Oz self presented to the emergency dept with his for chest pain. Oz reports he has been experiencing increased anxiety since lowering his dose of Haldol a week ago. Cardiac workup unremarkable. Oz was brought to the POD for a care management evaluation. He is with his and is currently eating dinner. No behavioral concerns noted. Oz denies SI/HI.
[2023-06-07 18:41] VITALS: BP 154/85; PULSE 108; RESP 16; TEMP 36.6; O2SAT 97
[2023-06-07] MEDS: OLANZapine 5 MG TABLET PO (19:49)
--- NOTE | 2023-06-08 09:42 | MHC.CARE ---
RAD team completed and faxed a referral for this individual to [facility]. Will follow up to confirm receipt later today or on 06/12 as it is a weekend and [facility] does not operate outside of business hours.
--- NOTE | 2023-06-11 09:23 | MHC.CARE ---
T/w spoke with Lorena at [facility] [place], [facility](ext [phone]) who stated she received the referral and will be calling pt today.
== END 2023-06-07 20:19 | disposition home or self-care (01) ==
PROVIDERS: Physician Assistant Medical; Emergency Provider Emergency Medicine; PCP Family Medicine
DX: F41.1 Generalized anxiety disorder (principal); F43.0 Acute stress reaction; R07.89 Other chest pain; R00.2 Palpitations; R06.02 Shortness of breath; Z79.899 Other long term (current) drug therapy
CPT/HCPCS: 36415; 71046; 80053; 80307; 81003; 83735; 84484; 85025; 85610; 93005; 99284; S9485

== ENCOUNTER 2023-07-06 10:12 | Outpatient (REF) | payer OTHER, SELFPAY | END 2023-07-06 10:13 | disposition home or self-care (01) | LOC: HO.HHCL 10:12 | PROVIDERS: Visit Provider Student in an Organized Health Care Education/Training Program | DX: E83.42 Hypomagnesemia (principal) | CPT/HCPCS: 36415; 80053; 83735; 84443 ==

== ENCOUNTER 2023-07-09 08:54 | Emergency (ER) | payer OTHER, SELFPAY ==
[2023-07-09 09:05] VITALS: BP 148/80; PULSE 89; RESP 16; TEMP 36.4; O2SAT 94; BMI 33.4
--- NOTE | 2023-07-09 10:18 | ED.GENADULT ---
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 Patient states that he has had trouble falling asleep and staying asleep. He states that over the last 2 days he has had static noises describing this as sounds you hear on a radio. He states that he is currently being worked up for schizophrenia outpatient. He states that he also has had some shortness of breath when lying down and states that he has been sleeping on a sofa couch as he is able to fall asleep sitting upright. He denies any fevers, chills, chest pain, palpitations, abdominal pain, nausea, vomiting or diarrhea. Denies any urinary symptoms. Denies any alcohol or drug use. He denies any command hallucinations. He denies any suicidal homicidal ideations. Denies any visual hallucinations. No other complaints or concerns at this time. MD complaint: Insomnia Onset (ago): day(s) Relieving factors: none Exacerbating factors: none Associated symptoms: denies other symptoms Treatments prior to arrival: none Related Data Home Medications Medication Instructions Recorded Confirmed aspirin 81 mg tablet,delayed 81 mg PO DAILY 01/26/21 02/02/21 release blood pressure test kit-large #1 ea 01/26/21 01/26/21 blood sugar diagnostic #10 ea 01/26/21 01/26/21 blood-glucose meter #1 ea 01/26/21 01/26/21 hydrochlorothiazide 25 mg tablet 25 mg PO DAILY 01/26/21 02/02/21 hydrocortisone 1 % topical cream 1 appl topical DAILY 01/26/21 02/02/21 lisinopril 30 mg tablet 30 mg PO DAILY 01/26/21 02/02/21 metformin 1,000 mg tablet 1,000 mg PO BID 01/26/21 02/02/21 pravastatin 20 mg tablet 20 mg PO BEDTIME 01/26/21 02/02/21 Previous Rx's Medication Instructions Recorded nystatin 100,000 unit/gram topical 1 appl topical TID #30 grams 01/19/21 ointment docusate sodium 100 mg capsule 100 mg PO BID #60 caps 02/08/21 (Colace) ibuprofen 600 mg tablet 600 mg PO Q6H PRN pain #30 tabs 02/08/21 oxycodone-acetaminophen 5 mg-325 1 - 2 tab PO Q4-6H PRN pain #30 02/08/21 mg tablet (Percocet) tabs levofloxacin 500 mg tablet 500 mg PO DAILY 7 days #7 tabs 06/15/21 hydroxyzine HCl 25 mg tablet 25 mg PO BEDTIME #20 tabs 07/09/23 Allergies Allergy/AdvReac Type Severity Reaction Status Date / Time No Known Allergies Allergy Verified 02/23/21 11:19 Review of Systems Review of Systems: Yes all other systems are reviewed and are negative Constitutional: Constitutional: Reports as per [facility] Past Medical History Attestation statement: The following information was validated with the patient. Medical History Hard of hearing Persecution, delusion Anxiety History of COVID-19 Elevated cholesterol Mass of anus High BMI HTN (hypertension) Diabetes Asthma Surgical History History of excision of mass H/O colonoscopy Hx of umbilical hernia repair History of knee surgery Family History Family History Mother Breast cancer Social History Social History Alcohol intake: current Alcohol intake frequency: holidays/special occasions only Patient Tobacco Use Status: Never used Tobacco Advance Directives: No Advance Directives Information Provided: No Physical Exam ED Vital Signs: Vital Signs - 24 hr 07/09/23 09:05 Temperature 97.5 F Pulse Rate 89 Respiratory Rate 16 Blood Pressure 148/80 H Pulse Oximetry 94 Oxygen Delivery Method Room Air BMI result Body Mass Index 33.4 Const General: cooperative, comfortable and no acute distress Orientation/consciousness: patient oriented x3 Limitations: no limitations HENMT Head: Yes normal to inspection, Yes normocephalic and Yes atraumatic Ears: hearing grossly normal bilaterally General nose exam: Normal external nose present Face and sinus: Yes normal facial exam Mouth: Normal oral and palatal mucosa present, oropharynx normal and moist mucous membranes Throat: Yes posterior oropharynx normal Eyes General: appearance normal, both eyes and all related structures Eyelids: Yes eyelids normal Conjunctivae: conjunctivae normal Sclerae: sclerae normal Pupils: Equal, round and reactive pupils present EOM: EOMs intact bilaterally Neck Neck: Yes normal visual inspection, Yes full ROM and Yes no lymphadenopathy Lymphatic: no lymphadenopathy noted Chest Chest palpation & inspection: normal inspection of the chest Resp Effort & Inspection: normal respiratory effort and able to speak in complete sentences Auscultation: clear to auscultation bilaterally, no crackles, no rales, no rhonchi and no wheezes Cardio Rate: regular rate Rhythm: regular rhythm Heart sounds: S1 normal heart sound present and S2 normal heart sound present GI Inspection: Yes normal to inspection Skin General skin exam: no rashes or lesions noted Trauma: no lacerations or abrasions Wounds: no wounds Neuro General: patient oriented x3 and moves all extremities Cranial nerves: Yes Equal, round and reactive pupils present Extrem Other: No calf tenderness bilaterally, no lower extremity pitting edema noted. General: Yes normal to inspection Right upper extremity: normal to inspection Left upper extremity: normal to inspection Right lower extremity: normal to inspection Left lower extremity: normal to inspection Course Reevaluation(s) Reevaluation #1: Workup today unremarkable, BMP within normal limits, no leukocytosis, stable H&H, troponin negative, chest x-ray normal. Patient's symptoms consistent with insomnia, upon further discussion he states that he drinks coffee at bedtime. Discussed importance sleep hygiene techniques and to follow-up with primary care physician in 2 days as scheduled. Given prescription for hydroxyzine. Given return precautions. Patient understands and agrees with plan. Patient stable for discharge. Time: 12:21 Medical Decision Making Medical Decision Making MDM Narrative: 57-year-old male, with a past medical history of anxiety, hypertension, diabetes, and asthma who presents the emergency department with complaints of difficulty sleeping for the last 2 days. On arrival, mildly hypertensive at 148/80, all other vital signs within normal limits. Patient endorsing shortness of breath upon lying down flat as well as some auditory hallucinations. He is currently being worked up for schizophrenia in an outpatient setting, next appointment is on Sunday. Patient has had no chest pain. No swelling in his lower extremities. Differential diagnoses include anxiety, insomnia, electrolyte abnormality, CHF-unlikely., ACS-unlikely Plan: Labs, EKG, chest x-ray, point of care glucose Differential Diagnosis Differential Diagnoses: The differential diagnosis associated with the presentation includes See above Admission/Observation Consideration of admission/observation: Escalation of care including admission/observation considered Patient would have been admitted to the hospital had his work up had any findings where hospital admission was appropriate and his clinical presentation warranted hospital admission. Lab Data 07/09/23 11:06 07/09/23 11:06 Labs: Lab Results 07/09/23 07/09/23 Range/Units 11:06 11:07 WBC 9.3 (4.8-10.8) X10*3/uL RBC 4.95 (4.60-5.80) X10*6/uL Hgb 14.9 (14.0-18.0) g/dl Hct 41.5 L (42.0-52.0) % MCV 83.8 (80.0-98.0) fL MCH 30.1 (27.0-33.0) pg MCHC 35.9 (31.0-36.0) g/dl RDW 12.0 (11.0-16.0) % Plt Count 339 (160-400) X10*3/uL MPV 10.0 (9.4-12.4) fL Immature Gran % (Auto) 0.3 (0.0-0.4) % Neut % (Auto) 76.5 H (45-73) % Lymph % (Auto) 16.0 L (20-40) % [place] % (Auto) 6.3 (2-11) % Eos % (Auto) 0.6 (0-4) % Baso % (Auto) 0.3 (0-2) % Lymph # (Auto) 1.5 (1.2-4.9) X10*3/uL [place] # (Auto) 0.6 (0.1-1.2) X10*3/uL Eos # (Auto) 0.1 (0.0-0.4) X10*3/uL Baso # (Auto) 0.0 (0.0-0.2) X10*3/uL Abs Immat Gran (auto) 0.03 (0.00-0.03) X10*3/uL Absolute Neuts (auto) 7.1 (2.0-8.3) x10*3/uL Absolute Nucleated RBC 0.000 (0.0-0.012) X10*3/uL Nucleated RBC % (auto) 0.0 (0.0-0.2) /100WBC Sodium 127 L (135-145) mmol/L Potassium 3.8 (3.3-5.1) mmol/L Chloride 92 L (96-108) mmol/L Carbon Dioxide 21 L (22-29) mmol/L Anion Gap 18 (12-20) BUN 15 (9-16) mg/dL Creatinine 0.94 (0.5-1.4) mg/dL Estim Creat Clear Calc 99.2 Estimated GFR > 60 Random Glucose 192 H (60-115) mg/dL Calcium 10.7 H D (8.4-10.2) mg/dL Total Bilirubin 0.6 (0.0-1.0) mg/dL Direct Bilirubin 0.2 (0.0-0.5) mg/dL AST 17 (5-37) U/L ALT 11 (0-40) U/L Alkaline Phosphatase 85 (39-117) U/L Troponin I High Sens < 2.7 (<3.5-35.0) ng/L B-Natriuretic Peptide < 10 (<100) pg/mL Total Protein 7.9 (6.5-8.0) g/dL Albumin 4.4 (3.5-5.0) g/dL Discharge Plan Discharge Clinical Impression: Insomnia Qualifiers: Insomnia type: unspecified Qualified Code(s): G47.00 - Insomnia, unspecified Patient Disposition: Home, Self-Care Instructions: Insomnia (ED) Additional Instructions: Your seen in the emergency department today as you have had difficulty sleeping for the last 2 days. It is important that you continue taking all your prescribed medications, abrupt discontinuation in your medications can cause adverse side effects including difficulty sleeping. Please take prescribed medication as directed. Please follow-up with your primary care physician regarding this visit. Practicing good sleep hygiene techniques including limiting electronic use in the bedroom, limiting electronic use an hour half before bedtime, using bedroom for sleep purposes only, exercise can also help with your symptoms. Avoid caffeine intake including coffee and tea after 3:00 p.m.. You may switch to decaffeinated help with your symptoms. If any new or worsening symptoms occur including but not limited to worsening symptoms, please return for re-evaluation. Lo atendieron en el departamento de emergencias hoy porque graves tenido dificultades para dormir lucrecia los ?ltimos 2 d?as. Es importante que contin?e tomando todos los medicamentos recetados; la interrupci?n abrupta de herve medicamentos puede causar efectos secundarios adversos, incluida dificultad para dormir. [place] los medicamentos recetados seg?n las indicaciones. Segun un seguimiento con chavira m?dico de atenci?n primaria con respecto a esta visita. Practicar buenas t?cnicas de higiene del janina?o, incluyendo limitar el uso de dispositivos electr?nicos en el dormitorio, limitar el uso de dispositivos electr?nicos hal hora y media antes de acostarse, usar el dormitorio ?nicamente para dormir, el ejercicio tambi?n puede ayudar con herve s?ntomas. Evite el consumo de cafe?na, incluido el caf? y el t?, despu?s de las 3:00 p. m. Puede cambiar a descafeinado para ayudar con herve s?ntomas. Si se presenta alg?n s?ntoma nuevo o que empeora, incluido, entre otros, el empeoramiento de los s?ntomas, regrese para hal reevaluaci?n. Prescriptions: New hydroxyzine HCl 25 mg tablet 25 mg PO BEDTIME Qty: 20 0RF No Action docusate sodium [Colace] 100 mg capsule 100 mg PO BID Qty: 60 2RF ibuprofen 600 mg tablet 600 mg PO Q6H PRN (Reason: pain) Qty: 30 0RF oxycodone-acetaminophen [Percocet] 5-325 mg tablet 1 - 2 tab PO Q4-6H PRN (Reason: pain) Qty: 30 0RF nystatin 100,000 unit/gram ointment 1 appl topical TID Qty: 30 0RF levofloxacin 500 mg tablet 500 mg PO DAILY 7 Days Qty: 7 0RF lisinopril 30 mg tablet 30 mg PO DAILY hydrochlorothiazide 25 mg tablet 25 mg PO DAILY aspirin 81 mg tablet,delayed release (DR/EC) 81 mg PO DAILY metformin 1,000 mg tablet 1,000 mg PO BID (DME) FreeStyle Lite Strips Strip See Rx Instructions Not Applicable .MEDSUPPLY Qty: 10 Rx Instructions: As directed pravastatin 20 mg tablet 20 mg PO BEDTIME hydrocortisone 1 % cream 1 appl topical DAILY (DME) blood pressure test kit-large Kit See Rx Instructions .ROUTE .MEDSUPPLY Qty: 1 Rx Instructions: As directed (DME) blood-glucose meter Kit See Rx Instructions Not Applicable .MEDSUPPLY Qty: 1 Rx Instructions: As directed Interventions: ED Discharge Assessment Last Done: 07/09/23 12:16 Discharge Date/Time: 07/09/23 12:16 Print Language: Dominican
== END 2023-07-09 12:16 | disposition home or self-care (01) ==
PROVIDERS: Emergency Provider Emergency Medicine; PCP Family Medicine
DX: G47.00 Insomnia, unspecified (principal); R06.02 Shortness of breath; Z79.899 Other long term (current) drug therapy
CPT/HCPCS: 36415; 71046; 80048; 80076; 83880; 84484; 85025; 93005; 99283

== ENCOUNTER 2023-09-14 12:54 | Inpatient (IN) | payer OTHER, SELFPAY ==
--- NOTE | ~2023-09-14 | CT_ITS ---
EXAMINATION: CT HEAD WITHOUT CONTRAST CLINICAL INFORMATION: Facial droop COMPARISON: None available. TECHNIQUE: Contiguous axial imaging was performed from the skull base to vertex without intravenous administration of contrast. This CT examination was performed using dose optimization techniques as appropriate, variously including the following: *Automated exposure control *Adjustment of mA and/or kV according to patient size (this includes techniques or standardized protocols for targeted exams where dose is matched to indication/reason for exam; i.e. extremities or head) *Use of iterative reconstruction technique DLP: 716.81 mGy-cm FINDINGS: No acute intracranial hemorrhage or infarct. The jorge-white matter differentiation is preserved. No midline shift or hydrocephalus. No acute extra-axial fluid collections. The osseous structures are unremarkable. No orbital pathology. The paranasal sinuses and mastoid air cells are clear. Atherosclerotic calcifications of the bilateral carotid siphons. CT/CT head/brain wo IV con IMPRESSION: No acute intracranial pathology.
[2023-09-14 13:01] VITALS: BP 162/86; PULSE 93; RESP 20; TEMP 37.1; O2SAT 98; BMI 32.4
--- NOTE | 2023-09-14 13:04 | ED_ITS ---
HPI - General Adult General Chief complaint: Psychiatric Symptoms Stated complaint: Crisis Time Seen by Provider: 09/14/23 13:27 Source: patient, family and old records reviewed Mode of arrival: ambulatory Limitations: no limitations History of Present Illness HPI narrative: 57 yo male with PMH of HTN, DM, HLD, anxiety he is here with family who state he is having increased anxiety and SI over the last month and not taking his medications. He has a healed cut to R upper AC area that appears as if it was deep. They note he has been hearing voices as well. He tells me he does not use drugs or drink alcohol. He denies all of this. His main complaint as well is itchy penis. MD complaint: SI/rash Onset (ago): month(s) (1) Location: genitals Radiation: non-radiation Severity: mild Quality: other (pruritis) Pain Consistency: constant Relieving factors: none Exacerbating factors: other Associated symptoms: other (anxiety, AH, SI - this is per his family member) Treatments prior to arrival: none Related Data Home Medications Medication Instructions Recorded Confirmed aspirin 81 mg tablet,delayed 81 mg PO DAILY 01/26/21 02/02/21 release blood pressure test kit-large #1 ea 01/26/21 01/26/21 blood sugar diagnostic #10 ea 01/26/21 01/26/21 blood-glucose meter #1 ea 01/26/21 01/26/21 hydrochlorothiazide 25 mg tablet 25 mg PO DAILY 01/26/21 02/02/21 hydrocortisone 1 % topical cream 1 appl topical DAILY 01/26/21 02/02/21 lisinopril 30 mg tablet 30 mg PO DAILY 01/26/21 02/02/21 metformin 1,000 mg tablet 1,000 mg PO BID 01/26/21 02/02/21 pravastatin 20 mg tablet 20 mg PO BEDTIME 01/26/21 02/02/21 Previous Rx's Medication Instructions Recorded nystatin 100,000 unit/gram topical 1 appl topical TID #30 grams 01/19/21 ointment docusate sodium 100 mg capsule 100 mg PO BID #60 caps 02/08/21 (Colace) ibuprofen 600 mg tablet 600 mg PO Q6H PRN pain #30 tabs 02/08/21 oxycodone-acetaminophen 5 mg-325 1 - 2 tab PO Q4-6H PRN pain #30 05/11/21 mg tablet (Percocet) tabs levofloxacin 500 mg tablet 500 mg PO DAILY 7 days #7 tabs 06/15/21 hydroxyzine HCl 25 mg tablet 25 mg PO BEDTIME #20 tabs 07/09/23 Allergies Allergy/AdvReac Type Severity Reaction Status Date / Time No Known Allergies Allergy Verified 02/23/21 11:19 Review of Systems 2 Review of Systems: Constitutional : No Fever, No Chills ENT/Mouth : No Ear Pain, No Nasal Congestion, No sore throat Eyes: No Eye Pain, No Swelling, No Redness Cardiovascular : No Chest Pain, No SOB Respiratory : No Cough, No Sputum, No Dyspnea Gastrointestinal : No Nausea, No Vomiting, No Diarrhea, No Hematochezia, No Melena Genitourinary : No Dysuria, No Urinary Frequency, No Hematuria Musculoskeletal : No Myalgias Skin : No Skin Lesions, pos rash Neuro : No Weakness, No Numbness, No Paresthesias, No Dizziness, No Headache Psych : positive Anxiety, positive Depression, no SI/HI Heme/Lymph: No Lymphadenopathy Endocrine : No Polyuria, No Polydipsia All other systems reviewed and are negative [facility] Past Medical History Source: old records reviewed Medical History Hard of hearing Persecution, delusion Anxiety History of COVID-19 Elevated cholesterol Mass of anus High BMI HTN (hypertension) Diabetes Asthma Surgical History History of excision of mass H/O colonoscopy Hx of umbilical hernia repair History of knee surgery Family History Family History Mother Breast cancer Social History Social History Alcohol intake: current Alcohol intake frequency: holidays/special occasions only Patient Tobacco Use Status: Never used Tobacco Use of substances other than those prescribed or required for medical reasons: No Advance Directives: No Advance Directives Information Provided: Yes Healthcare Proxy: No Guardian: No Physical Exam ED Vital Signs: Vital Signs - 24 hr 09/14/23 13:01 09/14/23 15:58 Temperature 98.7 F 97.2 F Pulse Rate 93 84 Respiratory Rate 20 16 Blood Pressure 162/86 H 148/85 H Pulse Oximetry 98 98 Oxygen Delivery Method Room Air Room Air BMI result Body Mass Index 32.4 Appearance: Alert. Oriented X3. No acute distress. Flat affect, withdrawn Eyes: Pupils equal, round and reactive to light. ENT: Pharynx normal. Neck: Normal inspection. Neck supple. CVS: Normal heart rate and rhythm. Pulses normal. Respiratory: No respiratory distress. Breath sounds normal. Abdomen: Soft and nontender. : penis excoriated with whitis material - yeast like in nature no signs of crepitus, swelling, no issues retracting foreskin Skin: Skin warm and dry. Normal skin color. Normal skin turgor. R AC healed linear deep abrasion no signs of infection, both legs excoriated rash but no signs of cellulitis Extremities: No lower extremity edema. No calf ttp Neuro: Oriented X 3. No motor deficit. No sensory deficit. CN2-12 intact Course Course Course Narrative: RME performed by Gayla Arce PA-C. Patient is a 57 year old assigned male at presenting to the emergency department with depression, self harm, and auditory hallucinations. Patient states that he is hearing new sounds, is not taking his medication, is not bathing, and has caused himself some harm with cutting. Patient's states that the patient has a history of suicide attempt. Labs ordered. Charge nurse made aware of patient. Reevaluation(s) Reevaluation #1: Physician observation started at 345pm. Patient placed in physician observation because the patient needed more time for CARE team to assess the need for psych admission. At the time observation was started the patient's vitals were stable, patient is alert and oriented but slightly agitated/anxious, Neuro: nonfocal, CV RRR, Lungs clear Reevaluation #2: requesting head CT for month plus of facial droop and numbness Medications Administered Generic Name Dose Route Start Last Admin Trade Name Freq PRN Reason Stop Dose Admin Clotrimazole 1 appl 09/14/23 13:45 09/14/23 20:30 Clotrimazole 1 % Cream 15 Gm Tube TOPICAL 1 appl BID ERWIN Administration Protocol Insulin Human Lispro 0 unit 09/14/23 16:30 09/14/23 20:37 Insulin Lispro 100 Unit/Ml 3 Ml Vial SUBCUT 09/15/23 14:56 4 unit QIDACHS ERWIN Administration Protocol Mupirocin 1 appl 09/14/23 13:40 09/14/23 20:30 Mupirocin 2 % Oint 22 Gm Tube TOPICAL 1 appl BID ERWIN Administration Protocol Medical Decision Making Medical Decision Making [facility] Narrative: 57 yo male with PMH of HTN, DM, HLD, anxiety here with c/o penile balanitis and excoriated lesions - I have ordered clotrimazole BID and mupiricon (2 weeks). No signs of cellulitis or eldon's. At this time family also c/o anxiety and SI - he has healed wound to R AC area - will medically clear and order CARE team consult. Differential Diagnosis Differential Diagnoses: The differential diagnosis associated with the presentation includes balanatis, anxiety, SI, hyperglycemia Admission/Observation Consideration of admission/observation: Escalation of care including admission/observation considered Consult Healthcare Provider Management of the patient was discussed with: Behavioral Health Provider Lab Data [facility] Lab Attestation statement: I reviewed the patient's lab results. 09/14/23 14:14 09/14/23 14:15 Labs: Lab Results 09/14/23 09/14/23 09/14/23 Range/Units 14:07 14:08 14:14 WBC 9.3 (4.8-10.8) X10*3/uL RBC 4.96 (4.60-5.80) X10*6/uL Hgb 14.7 (14.0-18.0) g/dl Hct 43.0 (42.0-52.0) % MCV 86.7 (80.0-98.0) fL MCH 29.6 (27.0-33.0) pg MCHC 34.2 (31.0-36.0) g/dl RDW 12.8 (11.0-16.0) % Plt Count 326 (160-400) X10*3/uL MPV 11.1 (9.4-12.4) fL Immature Gran % (Auto) 0.4 (0.0-0.4) % Neut % (Auto) 76.9 H (45-73) % Lymph % (Auto) 16.9 L (20-40) % [place] % (Auto) 4.6 (2-11) % Eos % (Auto) 0.8 (0-4) % Baso % (Auto) 0.4 (0-2) % Lymph # (Auto) 1.6 (1.2-4.9) X10*3/uL [place] # (Auto) 0.4 (0.1-1.2) X10*3/uL Eos # (Auto) 0.1 (0.0-0.4) X10*3/uL Baso # (Auto) 0.0 (0.0-0.2) X10*3/uL Abs Immat Gran (auto) 0.04 H (0.00-0.03) X10*3/uL Absolute Neuts (auto) 7.1 (2.0-8.3) x10*3/uL Absolute Nucleated RBC 0.000 (0.0-0.012) X10*3/uL Nucleated RBC % (auto) 0.0 (0.0-0.2) /100WBC Sodium (135-145) mmol/L Potassium (3.3-5.1) mmol/L Chloride (96-108) mmol/L Carbon Dioxide (22-29) mmol/L Anion Gap (12-20) BUN (9-16) mg/dL Creatinine (0.5-1.4) mg/dL Estim Creat Clear Calc Estimated GFR POC Glucose (60-115) mg/dL Random Glucose (60-115) mg/dL Calcium (8.4-10.2) mg/dL Total Bilirubin (0.0-1.0) mg/dL AST (5-37) U/L ALT (0-40) U/L Alkaline Phosphatase (39-117) U/L Total Protein (6.5-8.0) g/dL Albumin (3.5-5.0) g/dL Urine Color Yellow Urine Appearance Clear Urine pH 5.5 (5.0-9.0) Ur Specific [place] >= 1.030 H (1.005-1.025) Urine Protein Negative (Neg-Trace) mg/dL Urine Glucose (UA) >=1000 H (Negative) mg/dL Urine Ketones Negative (Negative) mg/dL Urine Blood Negative (Negative) Urine Nitrite Negative (Negative) Ur Leukocyte Esterase Negative (Negative) Urine RBC 0-2 (0-2) /HPF Urine WBC 0-5 (0-5) /HPF Ur Squamous Epith Cells 0-2 (0-2) /HPF Urine Bacteria None Seen (None Seen) Hyaline Casts 0-2 (0-2) /LPF Salicylates (15-30) mg/dL Urine Opiates Screen Not Detected (Not Detect) Urine Fentanyl Screen Not Detected (Not Detect) Acetaminophen (<30) mcg/mL Ur Barbiturates Screen Not Detected (Not Detect) Ur Phencyclidine Scrn Not Detected (Not Detect) Ur Amphetamines Screen Not Detected (Not Detect) U Benzodiazepines Scrn Not Detected (Not Detect) Urine Cocaine Screen Not Detected (Not Detect) U Marijuana (THC) Screen Not Detected (Not Detect) Ethyl Alcohol mg/dL COVID-19 (DONTRELL) (Negative) COVID-19 Clin Com 09/14/23 09/14/23 09/14/23 Range/Units 14:15 14:21 16:12 WBC (4.8-10.8) X10*3/uL RBC (4.60-5.80) X10*6/uL Hgb (14.0-18.0) g/dl Hct (42.0-52.0) % MCV (80.0-98.0) fL MCH (27.0-33.0) pg MCHC (31.0-36.0) g/dl RDW (11.0-16.0) % Plt Count (160-400) X10*3/uL MPV (9.4-12.4) fL Immature Gran % (Auto) (0.0-0.4) % Neut % (Auto) (45-73) % Lymph % (Auto) (20-40) % [place] % (Auto) (2-11) % Eos % (Auto) (0-4) % Baso % (Auto) (0-2) % Lymph # (Auto) (1.2-4.9) X10*3/uL [place] # (Auto) (0.1-1.2) X10*3/uL Eos # (Auto) (0.0-0.4) X10*3/uL Baso # (Auto) (0.0-0.2) X10*3/uL Abs Immat Gran (auto) (0.00-0.03) X10*3/uL Absolute Neuts (auto) (2.0-8.3) x10*3/uL Absolute Nucleated RBC (0.0-0.012) X10*3/uL Nucleated RBC % (auto) (0.0-0.2) /100WBC Sodium 136 (135-145) mmol/L Potassium 4.4 (3.3-5.1) mmol/L Chloride 102 (96-108) mmol/L Carbon Dioxide 23 (22-29) mmol/L Anion Gap 15 (12-20) BUN 18 H (9-16) mg/dL Creatinine 1.32 (0.5-1.4) mg/dL Estim Creat Clear Calc 69.5 Estimated GFR 56 POC Glucose 415 H* (60-115) mg/dL Random Glucose 582 H* (60-115) mg/dL Calcium 9.7 D (8.4-10.2) mg/dL Total Bilirubin 0.5 (0.0-1.0) mg/dL AST 13 (5-37) U/L ALT 10 (0-40) U/L Alkaline Phosphatase 102 (39-117) U/L Total Protein 7.4 (6.5-8.0) g/dL Albumin 3.9 (3.5-5.0) g/dL Urine Color Urine Appearance Urine pH (5.0-9.0) Ur Specific [place] (1.005-1.025) Urine Protein (Neg-Trace) mg/dL Urine Glucose (UA) (Negative) mg/dL Urine Ketones (Negative) mg/dL Urine Blood (Negative) Urine Nitrite (Negative) Ur Leukocyte Esterase (Negative) Urine RBC (0-2) /HPF Urine WBC (0-5) /HPF Ur Squamous Epith Cells (0-2) /HPF Urine Bacteria (None Seen) Hyaline Casts (0-2) /LPF Salicylates < 5.0 L (15-30) mg/dL Urine Opiates Screen (Not Detect) Urine Fentanyl Screen (Not Detect) Acetaminophen < 3 (<30) mcg/mL Ur Barbiturates Screen (Not Detect) Ur Phencyclidine Scrn (Not Detect) Ur Amphetamines Screen (Not Detect) U Benzodiazepines Scrn (Not Detect) Urine Cocaine Screen (Not Detect) U Marijuana (THC) Screen (Not Detect) Ethyl Alcohol < 10 mg/dL COVID-19 (DONTRELL) Negative (Negative) COVID-19 Clin Com See Note 09/14/23 09/14/23 Range/Units 18:29 20:24 WBC (4.8-10.8) X10*3/uL RBC (4.60-5.80) X10*6/uL Hgb (14.0-18.0) g/dl Hct (42.0-52.0) % MCV (80.0-98.0) fL MCH (27.0-33.0) pg MCHC (31.0-36.0) g/dl RDW (11.0-16.0) % Plt Count (160-400) X10*3/uL MPV (9.4-12.4) fL Immature Gran % (Auto) (0.0-0.4) % Neut % (Auto) (45-73) % Lymph % (Auto) (20-40) % [place] % (Auto) (2-11) % Eos % (Auto) (0-4) % Baso % (Auto) (0-2) % Lymph # (Auto) (1.2-4.9) X10*3/uL [place] # (Auto) (0.1-1.2) X10*3/uL Eos # (Auto) (0.0-0.4) X10*3/uL Baso # (Auto) (0.0-0.2) X10*3/uL Abs Immat Gran (auto) (0.00-0.03) X10*3/uL Absolute Neuts (auto) (2.0-8.3) x10*3/uL Absolute Nucleated RBC (0.0-0.012) X10*3/uL Nucleated RBC % (auto) (0.0-0.2) /100WBC Sodium (135-145) mmol/L Potassium (3.3-5.1) mmol/L Chloride (96-108) mmol/L Carbon Dioxide (22-29) mmol/L Anion Gap (12-20) BUN (9-16) mg/dL Creatinine (0.5-1.4) mg/dL Estim Creat Clear Calc Estimated GFR POC Glucose 139 H 231 H (60-115) mg/dL Random Glucose (60-115) mg/dL Calcium (8.4-10.2) mg/dL Total Bilirubin (0.0-1.0) mg/dL AST (5-37) U/L ALT (0-40) U/L Alkaline Phosphatase (39-117) U/L Total Protein (6.5-8.0) g/dL Albumin (3.5-5.0) g/dL Urine Color Urine Appearance Urine pH (5.0-9.0) Ur Specific [place] (1.005-1.025) Urine Protein (Neg-Trace) mg/dL Urine Glucose (UA) (Negative) mg/dL Urine Ketones (Negative) mg/dL Urine Blood (Negative) Urine Nitrite (Negative) Ur Leukocyte Esterase (Negative) Urine RBC (0-2) /HPF Urine WBC (0-5) /HPF Ur Squamous Epith Cells (0-2) /HPF Urine Bacteria (None Seen) Hyaline Casts (0-2) /LPF Salicylates (15-30) mg/dL Urine Opiates Screen (Not Detect) Urine Fentanyl Screen (Not Detect) Acetaminophen (<30) mcg/mL Ur Barbiturates Screen (Not Detect) Ur Phencyclidine Scrn (Not Detect) Ur Amphetamines Screen (Not Detect) U Benzodiazepines Scrn (Not Detect) Urine Cocaine Screen (Not Detect) U Marijuana (THC) Screen (Not Detect) Ethyl Alcohol mg/dL COVID-19 (DONTRELL) (Negative) COVID-19 Clin Com Independent Interpretation I performed an independent interpretation of an: EKG Interpretation: Rate: 87 Rhythm: NSR [place]: normal Normal P waves. Normal [place]. Normal QRS complex. ST T wave : normal no [place] qTC: normal prior studies: no acute ischemia The study has been interpreted contemporaneously by me. . Radiology Impression Discussion of test interpretation with radiology: I have reviewed the radiologist's reading. Independent Historian Clinical information obtained from an independent historian. History obtained from or confirmed by: Other (family) External Record Review External record reviewed: Inpatient record Discharge Plan Discharge Clinical Impression: Suicidal ideation, Balanitis, Acute hyperglycemia Patient Disposition: Still a Patient Prescriptions: No Action docusate sodium [Colace] 100 mg capsule 100 mg PO BID Qty: 60 2RF ibuprofen 600 mg tablet 600 mg PO Q6H PRN (Reason: pain) Qty: 30 0RF oxycodone-acetaminophen [Percocet] 5-325 mg tablet 1 - 2 tab PO Q4-6H PRN (Reason: pain) Qty: 30 0RF nystatin 100,000 unit/gram ointment 1 appl topical TID Qty: 30 0RF levofloxacin 500 mg tablet 500 mg PO DAILY 7 Days Qty: 7 0RF hydroxyzine HCl 25 mg tablet 25 mg PO BEDTIME Qty: 20 0RF lisinopril 30 mg tablet 30 mg PO DAILY hydrochlorothiazide 25 mg tablet 25 mg PO DAILY aspirin 81 mg tablet,delayed release (DR/EC) 81 mg PO DAILY metformin 1,000 mg tablet 1,000 mg PO BID (DME) FreeStyle Lite Strips Strip See Rx Instructions Not Applicable .MEDSUPPLY Qty: 10 Rx Instructions: As directed pravastatin 20 mg tablet 20 mg PO BEDTIME hydrocortisone 1 % cream 1 appl topical DAILY (DME) blood pressure test kit-large Kit See Rx Instructions .ROUTE .MEDSUPPLY Qty: 1 Rx Instructions: As directed (DME) blood-glucose meter Kit See Rx Instructions Not Applicable .MEDSUPPLY Qty: 1 Rx Instructions: As directed
--- NOTE | 2023-09-14 13:05 | ECG_ITS ---
Test Reason : SI Blood Pressure : / mmHG Vent. Rate : 087 BPM Atrial Rate : 087 BPM P-R Int : 142 ms QRS Dur : 088 ms QT Int : 372 ms P-R-T Axes : 021 -08 014 degrees QTc Int : 447 ms Normal sinus rhythm Cannot rule out Anterior infarct (cited on or before 14-SEP-2023) Abnormal ECG When compared with ECG of 09-JUL-2023 11:13, Minimal criteria for Inferior infarct are no longer Present Referred By: Gayla Arce Electronically Signed By:Laurent Quiroga
[2023-09-14 14:27] LABS: MANUAL DIFF FLAG NO
[2023-09-14] MEDS: Clotrimazole 1 % Cream 15 GM TUBE 1 APPL TOPICAL ×2 (14:28→20:30)
[2023-09-14] MEDS: Mupirocin 2 % Oint 22 GM TUBE 1 APPL TOPICAL ×2 (14:28→20:30)
[2023-09-14 14:29] LABS: Basophils Percent Auto 0.4 % (0-2); Eosinophils Absolute Auto 0.1 X10*3/uL (0.0-0.4); Eosinophils Percent Auto 0.8 % (0-4); Hemoglobin 14.7 g/dl (14.0-18.0); Imm Gran Abs Auto 0.04 X10*3/uL (0.00-0.03); Imm Gran Pct Auto 0.4 % (0.0-0.4); Lymphocytes Absolute Auto 1.6 X10*3/uL (1.2-4.9); Lymphocytes Percent Auto 16.9 % (20-40); Mean Corpuscular HGB Conc 34.2 g/dl (31.0-36.0); Mean Corpuscular Hemoglobin 29.6 pg (27.0-33.0); Mean Corpuscular Volume 86.7 fL (80.0-98.0); Mean Platelet Volume 11.1 fL (9.4-12.4); Monocytes Absolute Auto 0.4 X10*3/uL (0.1-1.2); Monocytes Percent Auto 4.6 % (2-11); Neutrophils Absolute Auto 7.1 x10*3/uL (2.0-8.3); Neutrophils Percent Auto 76.9 % (45-73); Platelet Count 326 X10*3/uL (160-400); Red Blood Count 4.96 X10*6/uL (4.60-5.80); Red Cell Distribution Width 12.8 % (11.0-16.0); White Blood Count 9.3 X10*3/uL (4.8-10.8)
[2023-09-14 14:30] LABS: Appearance Urine Clear; Color Urine Yellow; Glucose Urine UA >=1000 mg/dL (Negative); Leukocyte Esterase Urine Negative (Negative); Nitrite Urine Negative (Negative); PH 5.5 (5.0-9.0); Specific Gravity - Urine >= 1.030 (1.005-1.025); UMIC TRIGGER UA YES; Urine Blood Negative (Negative); Urine Ketones Negative (Negative); Urine Protein Negative (Neg-Trace)
[2023-09-14 14:37] LABS: Amphetamine Screen Urine Not Detected (Not Detect); Barbiturates, Urine Not Detected (Not Detect); Benzodiazepines Screen Urine Not Detected (Not Detect); Cannabinoid Screen Urine Not Detected (Not Detect); Cocaine Screen Urine Not Detected (Not Detect); Fentanyl, urine Not Detected (Not Detect); Opiate Screen Urine Not Detected (Not Detect); Phencyclidine Screen Urine Not Detected (Not Detect)
[2023-09-14 14:44] LABS: Acetaminophen LAB < 3 mcg/mL (<30); Salicylate < 5.0 mg/dL (15-30)
[2023-09-14 14:52] LABS: Alanine Aminotransferase 10 U/L (0-40); Albumin Level 3.9 g/dL (3.5-5.0); Alkaline Phosphatase 102 U/L (39-117); Anion Gap 15 (12-20); Aspartate Amino Transferase 13 U/L (5-37); Bilirubin Total 0.5 mg/dL (0.0-1.0); Blood Urea Nitrogen 18 mg/dL (9-16); Calcium 9.7 mg/dL (8.4-10.2); Carbon Dioxide 23 mmol/L (22-29); Chloride 102 mmol/L (96-108); Creatinine Clr Calc Pharmacy 69.5; Estimated Glomerular Filt Rate 56; Ethanol < 10 mg/dL; Glucose Random 582 mg/dL (60-115); Potassium 4.4 mmol/L (3.3-5.1); Sodium 136 mmol/L (135-145); Total Protein 7.4 g/dL (6.5-8.0)
[2023-09-14 14:57] LABS: COVID-19 Test Negative (Negative); IDNOW Serial# 08D9AD1C
[2023-09-14 15:07] LABS: Bacteria Urine None Seen (None Seen); Hyaline Casts Urine 0-2 /LPF (0-2); RBC Urine 0-2 /HPF (0-2); Squamous Epithelial Cell Urine 0-2 /HPF (0-2); WBC Urine 0-5 /HPF (0-5)
[2023-09-14 15:58] VITALS: BP 148/85; PULSE 84; RESP 16; TEMP 36.2; O2SAT 98
[2023-09-14 16:18] LABS: Glucose, Whole Blood 415 mg/dL (60-115)
[2023-09-14] MEDS: Insulin Lispro 100 UNIT/ML 3 ML VIAL SUBCUT ×2 (16:36→20:37)
[2023-09-14 18:35] LABS: Glucose, Whole Blood 139 mg/dL (60-115)
[2023-09-14 20:28] LABS: Glucose, Whole Blood 231 mg/dL (60-115)
[2023-09-15 00:39] VITALS: BP 167/95; PULSE 77; RESP 16; TEMP 36.2; O2SAT 97
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
[2023-09-15 08:11] LABS: Cholesterol 160 mg/dL (<200); HDL Cholesterol 35 mg/dL (>40); LDL Cholesterol Calculated 88 mg/dL (<100); Triglycerides 185 mg/dL (<150)
[2023-09-15 08:18] LABS: Estimated Average Glucose 269 mg/dL
[2023-09-15 08:22] LABS: Glucose, Whole Blood 254 mg/dL (60-115)
[2023-09-15 08:31] VITALS: BP 166/83; PULSE 87; RESP 16; TEMP 37; O2SAT 98
--- NOTE | 2023-09-15 08:52 | P.PNPSI_ITS ---
Subjective Subjective Date of Service: 09/15/23 Reason For Visit: Depression/Anxiety Interim History: met with patient; discussed with team Diagnostics Vital Signs (24Hr): Vital Signs - 24 hr 09/14/23 13:01 09/14/23 15:58 09/15/23 00:39 Temperature 98.7 F 97.2 F 97.1 F Pulse Rate 93 84 77 Respiratory Rate 20 16 16 Blood Pressure 162/86 H 148/85 H 167/95 H Pulse Oximetry 98 98 97 Oxygen Delivery Method Room Air Room Air Room Air 09/15/23 08:31 Temperature 98.6 F Pulse Rate 87 Respiratory Rate 16 Blood Pressure 166/83 H Pulse Oximetry 98 Oxygen Delivery Method Room Air BMI result Body Mass Index 32.4 Labs 09/14/23 14:14 09/14/23 14:15 Labs: Laboratory Results - last 48 hr 09/14/23 09/14/23 09/14/23 14:07 14:08 14:14 WBC 9.3 RBC 4.96 Hgb 14.7 Hct 43.0 MCV 86.7 MCH 29.6 MCHC 34.2 RDW 12.8 Plt Count 326 MPV 11.1 Immature Gran % (Auto) 0.4 Neut % (Auto) 76.9 H Lymph % (Auto) 16.9 L [place] % (Auto) 4.6 Eos % (Auto) 0.8 Baso % (Auto) 0.4 Lymph # (Auto) 1.6 [place] # (Auto) 0.4 Eos # (Auto) 0.1 Baso # (Auto) 0.0 Abs Immat Gran (auto) 0.04 H Absolute Neuts (auto) 7.1 Absolute Nucleated RBC 0.000 Nucleated RBC % (auto) 0.0 Sodium Potassium Chloride Carbon Dioxide Anion Gap BUN Creatinine Estim Creat Clear Calc Estimated GFR POC Glucose Random Glucose Estimat Average Glucose Hemoglobin A1c % Calcium Total Bilirubin AST ALT Alkaline Phosphatase Total Protein Albumin Triglycerides Cholesterol LDL Cholesterol, Calc HDL Cholesterol Urine Color Yellow Urine Appearance Clear Urine pH 5.5 Ur Specific [place] >= 1.030 H Urine Protein Negative Urine Glucose (UA) >=1000 H Urine Ketones Negative Urine Blood Negative Urine Nitrite Negative Ur Leukocyte Esterase Negative Urine RBC 0-2 Urine WBC 0-5 Ur Squamous Epith Cells 0-2 Urine Bacteria None Seen Hyaline Casts 0-2 Salicylates Urine Opiates Screen Not Detected Urine Fentanyl Screen Not Detected Acetaminophen Ur Barbiturates Screen Not Detected Ur Phencyclidine Scrn Not Detected Ur Amphetamines Screen Not Detected U Benzodiazepines Scrn Not Detected Urine Cocaine Screen Not Detected U Marijuana (THC) Screen Not Detected Ethyl Alcohol COVID-19 (DONTRELL) COVID-19 [place] 09/14/23 09/14/23 09/14/23 14:15 14:21 16:12 WBC RBC Hgb Hct MCV MCH MCHC RDW Plt Count MPV Immature Gran % (Auto) Neut % (Auto) Lymph % (Auto) [place] % (Auto) Eos % (Auto) Baso % (Auto) Lymph # (Auto) [place] # (Auto) Eos # (Auto) Baso # (Auto) Abs Immat Gran (auto) Absolute Neuts (auto) Absolute Nucleated RBC Nucleated RBC % (auto) Sodium 136 Potassium 4.4 Chloride 102 Carbon Dioxide 23 Anion Gap 15 BUN 18 H Creatinine 1.32 Estim Creat Clear Calc 69.5 Estimated GFR 56 POC Glucose 415 H* Random Glucose 582 H* Estimat Average Glucose Hemoglobin A1c % Calcium 9.7 D Total Bilirubin 0.5 AST 13 ALT 10 Alkaline Phosphatase 102 Total Protein 7.4 Albumin 3.9 Triglycerides Cholesterol LDL Cholesterol, Calc HDL Cholesterol Urine Color Urine Appearance Urine pH Ur Specific [place] Urine Protein Urine Glucose (UA) Urine Ketones Urine Blood Urine Nitrite Ur Leukocyte Esterase Urine RBC Urine WBC Ur Squamous Epith Cells Urine Bacteria Hyaline Casts Salicylates < 5.0 L Urine Opiates Screen Urine Fentanyl Screen Acetaminophen < 3 Ur Barbiturates Screen Ur Phencyclidine Scrn Ur Amphetamines Screen U Benzodiazepines Scrn Urine Cocaine Screen U Marijuana (THC) Screen Ethyl Alcohol < 10 COVID-19 (DONTRELL) Negative COVID-19 [place] See Note 09/14/23 09/14/23 09/15/23 18:29 20:24 07:30 WBC RBC Hgb Hct MCV MCH MCHC RDW Plt Count MPV Immature Gran % (Auto) Neut % (Auto) Lymph % (Auto) [place] % (Auto) Eos % (Auto) Baso % (Auto) Lymph # (Auto) [place] # (Auto) Eos # (Auto) Baso # (Auto) Abs Immat Gran (auto) Absolute Neuts (auto) Absolute Nucleated RBC Nucleated RBC % (auto) Sodium Potassium Chloride Carbon Dioxide Anion Gap BUN Creatinine Estim Creat Clear Calc Estimated GFR POC Glucose 139 H 231 H Random Glucose Estimat Average Glucose 269 Hemoglobin A1c % 11.0 H Calcium Total Bilirubin AST ALT Alkaline Phosphatase Total Protein Albumin Triglycerides 185 H Cholesterol 160 LDL Cholesterol, Calc 88 HDL Cholesterol 35 L Urine Color Urine Appearance Urine pH Ur Specific [place] Urine Protein Urine Glucose (UA) Urine Ketones Urine Blood Urine Nitrite Ur Leukocyte Esterase Urine RBC Urine WBC Ur Squamous Epith Cells Urine Bacteria Hyaline Casts Salicylates Urine Opiates Screen Urine Fentanyl Screen Acetaminophen Ur Barbiturates Screen Ur Phencyclidine Scrn Ur Amphetamines Screen U Benzodiazepines Scrn Urine Cocaine Screen U Marijuana (THC) Screen Ethyl Alcohol COVID-19 (DONTRELL) COVID-19 [facility] Com 09/15/23 08:10 WBC RBC Hgb Hct MCV MCH MCHC RDW Plt Count MPV Immature Gran % (Auto) Neut % (Auto) Lymph % (Auto) [place] % (Auto) Eos % (Auto) Baso % (Auto) Lymph # (Auto) [place] # (Auto) Eos # (Auto) Baso # (Auto) Abs Immat Gran (auto) Absolute Neuts (auto) Absolute Nucleated RBC Nucleated RBC % (auto) Sodium Potassium Chloride Carbon Dioxide Anion Gap BUN Creatinine Estim Creat Clear Calc Estimated GFR POC Glucose 254 H Random Glucose Estimat Average Glucose Hemoglobin A1c % Calcium Total Bilirubin AST ALT Alkaline Phosphatase Total Protein Albumin Triglycerides Cholesterol LDL Cholesterol, Calc HDL Cholesterol Urine Color Urine Appearance Urine pH Ur Specific [place] Urine Protein Urine Glucose (UA) Urine Ketones Urine Blood Urine Nitrite Ur Leukocyte Esterase Urine RBC Urine WBC Ur Squamous Epith Cells Urine Bacteria Hyaline Casts Salicylates Urine Opiates Screen Urine Fentanyl Screen Acetaminophen Ur Barbiturates Screen Ur Phencyclidine Scrn Ur Amphetamines Screen U Benzodiazepines Scrn Urine Cocaine Screen U Marijuana (THC) Screen Ethyl Alcohol COVID-19 (DONTRELL) COVID-19 Clin Com Imaging Radiology Impressions: ITS Impressions Head CT 09/14/23 21:24 IMPRESSION: No acute intracranial pathology. Medications Medications Current Medications Acetaminophen (Acetaminophen 325 Mg Tablet) 650 mg PO Q6H PRN PRN Reason: Headache/Pain Mild Scale (1-3) Al Hydroxide/Mg Hydroxide (Magnesium Hydrox/Alum Hydrox 30 Ml Oral.Susp) 30 ml PO Q6H PRN PRN Reason: Heartburn/Nausea Clotrimazole (Clotrimazole 1 % Cream 15 Gm Tube) 1 appl TOPICAL BID ERWIN; Protocol Last Admin: 09/14/23 20:30 Dose: 1 appl Dextrose (Dextrose 50 % 25 Gm/50 Ml Syringe) 25 gm IVPUSH Q15M PRN; Protocol PRN Reason: per Hypoglycemia Standing Ord. Glucose (Glucose Gel 15 Gm Gel..Gram.) 15 gm PO Q15M PRN; Protocol PRN Reason: per Hypoglycemia Standing Ord. Hydroxyzine HCl (Hydroxyzine Hcl 25 Mg Tablet) 25 mg PO Q6H PRN PRN Reason: Anxiety Insulin Human Lispro (Insulin Lispro 100 Unit/Ml 3 Ml Vial) 0 unit SUBCUT QIDACHS ON LICENSE OF [facility]; Protocol Stop: 09/15/23 14:56 Last Admin: 09/14/23 20:37 Dose: 4 unit Magnesium Hydroxide (Milk Of Magnesia 30 Ml Oral.Susp) 30 ml PO DAILY PRN PRN Reason: Constipation Metformin HCl (Metformin Hcl 1,000 Mg Tablet) 1,000 mg PO BIDWM ON LICENSE OF [facility] Mupirocin (Mupirocin 2 % Oint 22 Gm Tube) 1 appl TOPICAL BID ON LICENSE OF [facility]; Protocol Last Admin: 09/14/23 20:30 Dose: 1 appl Nicotine (Nicotine 21 Mg Patch.Td24) 21 mg TRANSDERMA DAILY PRN PRN Reason: smoking cessation Nicotine Polacrilex (Nicotine Polacrilex 2 Mg Gum) 4 mg BUCCAL Q2H PRN PRN Reason: Nicotine Cravings Olanzapine (Olanzapine 5 Mg Tablet) 5 mg PO TID PRN PRN Reason: agitation Trazodone HCl (Trazodone Hcl 50 Mg Tablet) 50 mg PO BEDTIME MRX1 PRN PRN Reason: Insomnia Allergies Allergies Allergy/AdvReac Type Severity Reaction Status Date / Time No Known Allergies Allergy Verified 02/23/21 11:19 Assessment & Plan Time Spent With Patient Time: Total time managing care of this patient today ____ minutes.
[2023-09-15] MEDS: metFORMIN HCl 1,000 MG TABLET 1000 MG PO ×2 (09:10→17:15)
[2023-09-15] MEDS: Insulin Lispro 100 UNIT/ML 3 ML VIAL SUBCUT ×2 (09:11→12:48)
[2023-09-15] MEDS: Acetaminophen 325 MG TABLET 650 MG PO (09:15)
[2023-09-15] MEDS: Clotrimazole 1 % Cream 15 GM TUBE 1 APPL TOPICAL ×2 (09:15→21:21)
[2023-09-15] MEDS: hydrOXYzine HCL 25 MG TABLET PO (09:15)
[2023-09-15] MEDS: Mupirocin 2 % Oint 22 GM TUBE 1 APPL TOPICAL ×2 (09:18→21:21)
[2023-09-15 12:41] LABS: Glucose, Whole Blood 283 mg/dL (60-115)
[2023-09-15] MEDS: risperiDONE 0.5 MG TABLET PO ×2 (12:48→21:19)
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
[2023-09-15 17:14] LABS: Glucose, Whole Blood 380 mg/dL (60-115)
[2023-09-15 17:42] VITALS: BP 138/77; PULSE 65; RESP 18; TEMP 36.6; O2SAT 99
[2023-09-15 21:07] LABS: Glucose, Whole Blood 262 mg/dL (60-115)
[2023-09-15] MEDS: traZODone HCL 50 MG TABLET PO (21:19)
[2023-09-16 08:18] VITALS: BP 166/79; PULSE 84; RESP 16; TEMP 36.5; O2SAT 97
[2023-09-16 08:18] LABS: Glucose, Whole Blood 324 mg/dL (60-115)
[2023-09-16] MEDS: Clotrimazole 1 % Cream 15 GM TUBE 1 APPL TOPICAL ×2 (09:30→21:03)
[2023-09-16] MEDS: metFORMIN HCl 1,000 MG TABLET 1000 MG PO ×2 (09:30→17:09)
[2023-09-16] MEDS: risperiDONE 0.5 MG TABLET PO (09:30)
[2023-09-16] MEDS: Mupirocin 2 % Oint 22 GM TUBE 1 APPL TOPICAL ×2 (09:30→21:03)
[2023-09-16] MEDS: Insulin Lispro 100 UNIT/ML 3 ML VIAL SUBCUT ×3 (10:09→17:09)
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
[2023-09-16 12:26] LABS: Glucose, Whole Blood 307 mg/dL (60-115)
[2023-09-16 16:51] LABS: Glucose, Whole Blood 238 mg/dL (60-115)
[2023-09-16 18:00] VITALS: BP 157/85; PULSE 92; TEMP 36.8; O2SAT 98
[2023-09-16] MEDS: risperiDONE 2 MG TABLET PO (21:06)
[2023-09-16] MEDS: traZODone HCL 50 MG TABLET PO (21:06)
[2023-09-16] MEDS: hydrOXYzine HCL 25 MG TABLET PO (21:06)
[2023-09-16 22:33] LABS: Glucose, Whole Blood 286 mg/dL (60-115)
[2023-09-17 08:18] LABS: Glucose, Whole Blood 262 mg/dL (60-115)
[2023-09-17 08:40] VITALS: BP 159/88; PULSE 90; RESP 18; TEMP 36.6; O2SAT 98
[2023-09-17] MEDS: metFORMIN HCl 1,000 MG TABLET 1000 MG PO ×2 (08:43→18:23)
[2023-09-17] MEDS: Insulin Lispro 100 UNIT/ML 3 ML VIAL SUBCUT ×4 (08:44→21:42)
[2023-09-17] MEDS: risperiDONE 1 MG TABLET PO (08:44)
[2023-09-17] MEDS: Clotrimazole 1 % Cream 15 GM TUBE 1 APPL TOPICAL ×2 (08:47→21:43)
[2023-09-17] MEDS: Mupirocin 2 % Oint 22 GM TUBE 1 APPL TOPICAL ×2 (08:47→21:44)
[2023-09-17 12:34] LABS: Glucose, Whole Blood 338 mg/dL (60-115)
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
[2023-09-17 17:44] LABS: Glucose, Whole Blood 239 mg/dL (60-115)
[2023-09-17 18:00] VITALS: BP 156/92; PULSE 115; RESP 16; TEMP 36.8; O2SAT 97
[2023-09-17 21:31] LABS: Glucose, Whole Blood 156 mg/dL (60-115)
[2023-09-17] MEDS: traZODone HCL 50 MG TABLET PO (21:39)
[2023-09-17] MEDS: risperiDONE 2 MG TABLET PO (21:39)
[2023-09-18 06:00] VITALS: BP 156/89; PULSE 114; RESP 18; TEMP 36.6; O2SAT 97
[2023-09-18 08:29] LABS: Glucose, Whole Blood 247 mg/dL (60-115)
[2023-09-18] MEDS: metFORMIN HCl 1,000 MG TABLET 1000 MG PO ×2 (09:32→18:14)
[2023-09-18] MEDS: risperiDONE 1 MG TABLET PO (09:32)
[2023-09-18] MEDS: Insulin Lispro 100 UNIT/ML 3 ML VIAL SUBCUT ×4 (09:32→22:55)
[2023-09-18] MEDS: Clotrimazole 1 % Cream 15 GM TUBE 1 APPL TOPICAL (09:35)
[2023-09-18] MEDS: Mupirocin 2 % Oint 22 GM TUBE 1 APPL TOPICAL (09:35)
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
[2023-09-18 12:31] LABS: Glucose, Whole Blood 279 mg/dL (60-115)
[2023-09-18 17:02] LABS: Glucose, Whole Blood 324 mg/dL (60-115)
[2023-09-18 18:45] VITALS: BP 135/85; PULSE 107; RESP 16; TEMP 36.5; O2SAT 99
[2023-09-18] MEDS: traZODone HCL 50 MG TABLET PO (22:47)
[2023-09-18] MEDS: risperiDONE 2 MG TABLET PO (22:48)
[2023-09-18 22:59] LABS: Glucose, Whole Blood 246 mg/dL (60-115)
[2023-09-19 08:18] LABS: Glucose, Whole Blood 273 mg/dL (60-115)
[2023-09-19 08:45] VITALS: BP 146/73; PULSE 109; RESP 18; TEMP 36.8; O2SAT 98
[2023-09-19] MEDS: risperiDONE 1 MG TABLET PO (09:00)
[2023-09-19] MEDS: metFORMIN HCl 1,000 MG TABLET 1000 MG PO (09:00)
[2023-09-19] MEDS: Insulin Lispro 100 UNIT/ML 3 ML VIAL SUBCUT (09:00)
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
== END 2023-09-19 11:22 | disposition home or self-care (01) | DRG 885 ==
LOC: HO.ED 20:22 → HO.PM5 09-15 00:12
PROVIDERS: Physician Assistant Medical; Admitting Provider Psychiatry & Neurology Psychiatry; Emergency Provider Emergency Medicine; PCP Family Medicine; Visit Provider Psychiatry & Neurology Psychiatry
DX: F29 Unspecified psychosis not due to a substance or known physiological condition (principal); R45.851 Suicidal ideations; E11.9 Type 2 diabetes mellitus without complications; E78.5 Hyperlipidemia, unspecified; I10 Essential (primary) hypertension; Z20.822 Contact with and (suspected) exposure to COVID-19; Z79.82 Long term (current) use of aspirin; Z79.84 Long term (current) use of oral hypoglycemic drugs; Z79.899 Other long term (current) drug therapy
CPT/HCPCS: 36415; 70450; 80053; 80061; 80143; 80179; 80307; 81001; 82947; 83036; 85025; 87635; 93005; 99285; S9485

== ENCOUNTER → 2023-09-14 13:05 | Outpatient (BNV) | payer OTHER, SELFPAY | PROVIDERS: Admitting Provider Psychiatry & Neurology Psychiatry; Emergency Provider Emergency Medicine; PCP Family Medicine; Visit Provider Internal Medicine Cardiovascular Disease | DX: R94.31 Abnormal electrocardiogram [ECG] [EKG] (principal) | CPT/HCPCS: 93010 ==

== ENCOUNTER → 2023-09-15 00:05 | Outpatient (BNV) | payer OTHER, SELFPAY | PROVIDERS: Admitting Provider Psychiatry & Neurology Psychiatry; Emergency Provider Emergency Medicine; PCP Family Medicine; Visit Provider Psychiatry & Neurology Psychiatry | DX: F33.3 Major depressive disorder, recurrent, severe with psychotic symptoms (principal); F29 Unspecified psychosis not due to a substance or known physiological condition | CPT/HCPCS: 90792; 99232; 99238 ==

== ENCOUNTER 2023-10-02 08:56 | Emergency (ER) | payer OTHER, SELFPAY ==
--- NOTE | ~2023-10-02 | XR_ITS ---
EXAMINATION: XR KNEE, RIGHT CLINICAL INFORMATION: Pain and swelling. COMPARISON: None available. TECHNIQUE: Four views of the right knee. FINDINGS: No fracture, subluxation or joint effusion. Tricompartmental osteophyte formation and narrowing of joint spaces. The joint space loss appears to be worst at the medial tibiofemoral compartment and there is associated subarticular sclerosis of the tibia. No suspicious bone lesions. XR/XR knee RT 3V IMPRESSION: * No acute findings. No fracture or malalignment. * Tricompartmental osteoarthritis of the right knee. The joint degeneration is worst (at least moderate in degree) at the medial tibiofemoral compartment.
[2023-10-02 09:26] VITALS: BP 151/86; PULSE 77; RESP 18; TEMP 36.4; O2SAT 99; BMI 33.0
--- NOTE | 2023-10-02 11:22 | ED.LOWEXIN ---
HPI - Extremity Injury (Lower) General Chief Complaint: Extremity Injury, Lower Stated Complaint: Swollen R knee Source: patient and RN notes reviewed Mode of arrival: ambulatory Limitations: no limitations History of Present Illness HPI Narrative: this is a 57-year-old male presenting to the emergency department with complaints of right knee pain x4 days. Patient denies any recent trauma or injury. No fevers, chills, redness, warmth to the area. He is ambulatory. History of meniscal injury to his right knee which required surgery. He had this surgery performed at [facility] many years ago. Denies any chest pain, shortness of breath, recent travel, surgeries, hospitalizations. Denies any other complaints or concerns at this time. MD complaint: knee injury Onset (ago): day(s) Severity: moderate Relieving factors: nothing Exacerbating factors: nothing Other symptoms: none Related Data Home Medications Medication Instructions Recorded Confirmed blood pressure test kit-large #1 ea 01/26/21 01/26/21 blood sugar diagnostic #10 ea 01/26/21 01/26/21 blood-glucose meter #1 ea 01/26/21 01/26/21 hydrocortisone 1 % topical cream 1 appl topical DAILY 01/26/21 02/02/21 metformin 1,000 mg tablet 1,000 mg PO BID 01/26/21 02/02/21 Previous Rx's Medication Instructions Recorded nystatin 100,000 unit/gram topical 1 appl topical TID #30 grams 01/19/21 ointment aspirin 81 mg tablet,delayed 81 mg PO DAILY 30 days #30 tabs 09/19/23 release docusate sodium 100 mg capsule 100 mg PO BID PRN constipation #60 09/19/23 (Colace) caps risperidone 3 mg tablet 3 mg PO BEDTIME 30 days #30 tabs 09/19/23 trazodone 50 mg tablet 50 mg PO BEDTIME 30 days #30 tabs 09/19/23 acetaminophen 500 mg tablet 500 mg PO Q6H PRN pain #30 tabs 10/02/23 (Tylenol Extra Strength) Allergies Allergy/AdvReac Type Severity Reaction Status Date / Time No Known Allergies Allergy Verified 10/02/23 09:25 Review of Systems Review of Systems: Yes all other systems are reviewed and are negative PMFSH Past Medical History Attestation statement: The following information was validated with the patient. Onset Date is defined in the Problem List Problems that require an onset date and time if occurred within 24 hrs of arrival to the ED Aortic Dissection and Rupture; Neurologic impairment; Cardiopulmonary Arrest; Endotracheal Intubation; Insertion or Replacement of Mechanical Circulatory Assist Device Medical History Psychosis Hard of hearing Persecution, delusion Anxiety History of COVID-19 Elevated cholesterol Mass of anus High BMI HTN (hypertension) Diabetes Asthma Surgical History History of excision of mass H/O colonoscopy Hx of umbilical hernia repair History of knee surgery Family History Family History Mother Breast cancer Social History Social History Household Members: Spouse and Other Household Members Other:: 4 children Housing: House Do you presently have visiting nurse or other home services: No Alcohol intake: current Alcohol intake frequency: holidays/special occasions only Patient Tobacco Use Status: Never used Tobacco e-Cigarette/Vaping Use: Never Used Advance Directives: No Advance Directives Information Provided: Yes service: No Sexual orientation: Decline to Answer Physical Exam Vital Signs: Vital Signs: Last Vital Signs Temp 97.5 F 10/02/23 09:26 Pulse 77 10/02/23 09:26 Resp 18 10/02/23 09:26 BP 151/86 H 10/02/23 09:26 Pulse Ox 99 10/02/23 09:26 O2 Del Method Room Air 10/02/23 09:26 BMI result Body Mass Index 33.0 Const: Other: General: Awake, alert, and oriented X3. No acute distress. HEENT: Normal inspection CVS: Normal heart rate and rhythm. Pulses normal. Respiratory: No respiratory distress Skin: Warm, dry, no rashes noted to exposed skin. Normal skin color. Normal skin turgor. Extremities: Right knee with tenderness to palpation along the medial joint line with mild edema noted, no erythema or warmth noted to the joint, full range of motion, negative anterior posterior drawer test, no pain with varus and valgus strain. Distal sensation circulation intact. No calf tenderness. Neuro: Oriented X 3. No motor deficit. No sensory deficit. Medications Administered Discontinued Medications Generic Name Dose Route Start Last Admin Trade Name Henok PRN Reason Stop Dose Admin Acetaminophen 975 mg 10/02/23 11:21 10/02/23 11:25 Acetaminophen 325 Mg Tablet PO 10/02/23 11:22 975 mg ONCE ONE Administration Medical Decision Making Medical Decision Making [facility] Narrative: This is a 57-year-old male presenting to the emergency department with complaints of acute on chronic right knee pain x4 days. On arrival, patient is ambulatory with steady gait, vital signs within normal limits. Patient obtain x-ray showing moderate to severe osteoarthritis in the right knee. Discussed these findings with patient, given orthopedic follow-up, also placed an Caleb wrap and given crutches to help with weight-bearing. Educated the importance of following up with Orthopedic, they understand and agree with plan. Patient understands and agrees with plan. Patient stable for discharge. Of note, a D-dimer was added to this workup by accident, patient's D-dimer is 260, age adjusted is negative. Patient has no chest pain, shortness of breath, calf pain, swelling in his lower extremities, he is not tachycardic or dyspnenic. His symptoms are consistent with osteoarthritis. Discussed this with patient, stable for discharge Differential Diagnosis Differential Diagnoses: The differential diagnosis associated with the presentation includes osteoarthritis, gout, knee strain, contusion, fracture Lab Data Labs: Lab Results 10/02/23 Range/Units 11:37 D-Dimer High Sensitivty 260 NG/ML Radiology Impression Discussion of test interpretation with radiology: I have reviewed the radiologist's reading. Radiologist Impression: EXAMINATION: XR KNEE, RIGHT CLINICAL INFORMATION: Pain and swelling. COMPARISON: None available. TECHNIQUE: Four views of the right knee. FINDINGS: No fracture, subluxation or joint effusion. Tricompartmental osteophyte formation and narrowing of joint spaces. The joint space loss appears to be worst at the medial tibiofemoral compartment and there is associated subarticular sclerosis of the tibia. No suspicious bone lesions. XR/XR knee RT 3V IMPRESSION: * No acute findings. No fracture or malalignment. * Tricompartmental osteoarthritis of the right knee. The joint degeneration is worst (at least moderate in degree) at the medial tibiofemoral compartment. Dictated By: Esequiel Bernard MD Discharge Plan Discharge Clinical Impression: Chronic knee pain Patient Disposition: Home, Self-Care Instructions: Crutch Instructions (ED), Knee Pain (ED) Additional Instructions: You were seen in the emergency department due to knee pain. Your x-rays today show worsening arthritis. You need to follow-up with Orthopedics, call today to make appointment. Rest, ice, gentle range of motion and stretching help with your symptoms. Continue taking Tylenol as needed for pain. If any new or worsening symptoms occur including but not limited to worsening pain redness, increased swelling, please return for re-evaluation. Le atendieron en urgencias por dolor de rodilla. Lina radiograf?as de hoy muestran un empeoramiento de la artritis. Necesita seguimiento con [employer], llame hoy para programar shar. El descanso, el hielo, la amplitud de movimiento suave y los estiramientos ayudan con lina s?ntomas. Contin?e tomando Tylenol seg?n sea necesario para el dolor. Si se presenta alg?n s?ntoma nuevo o que empeora, incluidos, entre otros, empeoramiento del dolor, enrojecimiento o aumento de la hinchaz?n, regrese para hal nueva evaluaci?n. Prescriptions: New acetaminophen [Tylenol Extra Strength] 500 mg tablet 500 mg PO Q6H PRN (Reason: pain) Qty: 30 0RF No Action nystatin 100,000 unit/gram ointment 1 appl topical TID Qty: 30 0RF trazodone 50 mg Tablet 50 mg PO BEDTIME 30 Days Qty: 30 0RF risperidone 3 mg tablet 3 mg PO BEDTIME 30 Days Qty: 30 0RF aspirin 81 mg tablet,delayed release (DR/EC) 81 mg PO DAILY 30 Days Qty: 30 0RF docusate sodium [Colace] 100 mg capsule 100 mg PO BID PRN (Reason: constipation) Qty: 60 2RF metformin 1,000 mg tablet 1,000 mg PO BID (DME) blood sugar diagnostic Strip See Rx Instructions Not Applicable .MEDSUPPLY Qty: 10 Rx Instructions: As directed hydrocortisone 1 % cream 1 appl topical DAILY (DME) blood pressure test kit-large Kit See Rx Instructions .ROUTE .MEDSUPPLY Qty: 1 Rx Instructions: As directed (DME) blood-glucose meter Kit See Rx Instructions Not Applicable .MEDSUPPLY Qty: 1 Rx Instructions: As directed [place] [facility] [place] Group[place] Stand Alone Forms: Work/School Release Interventions: ED Discharge Assessment Last Done: 10/02/23 13:50 Discharge Date/Time: 10/02/23 13:51
[2023-10-02] MEDS: Acetaminophen 325 MG TABLET 975 MG PO (11:25)
[2023-10-02 11:53] LABS: D Dimer High Sensitivity 260 NG/ML
== END 2023-10-02 13:51 | disposition home or self-care (01) ==
PROVIDERS: Physician Assistant; Emergency Provider Emergency Medicine; PCP Family Medicine
DX: G89.29 Other chronic pain (principal); M25.561 Pain in right knee; E11.9 Type 2 diabetes mellitus without complications; I10 Essential (primary) hypertension; E78.5 Hyperlipidemia, unspecified; Z79.82 Long term (current) use of aspirin; Z79.84 Long term (current) use of oral hypoglycemic drugs; Z79.899 Other long term (current) drug therapy
CPT/HCPCS: 36415; 73562; 85379; 99283

== ENCOUNTER 2023-10-10 10:23 | Outpatient (REF) | payer OTHER, SELFPAY ==
[2023-10-10 13:12] LABS: T4 Thyroxine 7.8 ug/dL (4.5-12.0); Thyroid Stimulating Hormone 1.05 uIU/mL (0.32-4.0)
[2023-10-10 13:15] LABS: Folate 14.2 ng/mL (> or = 4.0); Vitamin B12 661 pg/mL (200-900)
== END 2023-10-10 10:24 | disposition home or self-care (01) ==
LOC: HO.LAB 10:23
PROVIDERS: PCP Family Medicine; Visit Provider Psychiatry & Neurology Neurology
DX: G31.84 Mild cognitive impairment of uncertain or unknown etiology (principal)
CPT/HCPCS: 36415; 82607; 82746; 84436; 84443

== ENCOUNTER 2023-11-08 09:24 | Outpatient (REF) | payer OTHER, SELFPAY ==
--- NOTE | ~2023-11-08 | XR_ITS ---
EXAMINATION: XR KNEE STANDING BI, XR KNEE RT CLINICAL INFORMATION: Reason for Exam M25.569 - Pain in unspecified knee COMPARISON: Knee radiographs 10-24 and 07/06/2017 TECHNIQUE: 1 view of the bilateral knees and one view of the right knee FINDINGS: RIGHT KNEE: No acute fracture or dislocation. Advanced degenerative changes of the knee with complete loss of medial compartment joint space and medial and lateral compartment osteophytes with valgus angulation of the knee. Atherosclerotic vascular calcification. LEFT KNEE: No acute fracture or dislocation. Advanced degenerative changes in the knee with complete loss of medial compartment joint space and lateral compartment osteophytes with valgus evaluation of the knee. Nonspecific coarse soft tissue calcifications along the lateral aspect of the distal femoral diaphysis. Atherosclerotic vascular calcification. XR/XR knee RT 1V IMPRESSION: Advanced degenerative changes of the bilateral knees, worst in the medial compartments where there is complete loss of joint space and with valgus angulation of the knees.
--- NOTE | ~2023-11-08 | XR_ITS ---
EXAMINATION: XR KNEE STANDING BI, XR KNEE RT CLINICAL INFORMATION: Reason for Exam M25.569 - Pain in unspecified knee COMPARISON: Knee radiographs 10-24 and 07/06/2017 TECHNIQUE: 1 view of the bilateral knees and one view of the right knee FINDINGS: RIGHT KNEE: No acute fracture or dislocation. Advanced degenerative changes of the knee with complete loss of medial compartment joint space and medial and lateral compartment osteophytes with valgus angulation of the knee. Atherosclerotic vascular calcification. LEFT KNEE: No acute fracture or dislocation. Advanced degenerative changes in the knee with complete loss of medial compartment joint space and lateral compartment osteophytes with valgus evaluation of the knee. Nonspecific coarse soft tissue calcifications along the lateral aspect of the distal femoral diaphysis. Atherosclerotic vascular calcification. XR/XR knee standing BI IMPRESSION: Advanced degenerative changes of the bilateral knees, worst in the medial compartments where there is complete loss of joint space and with valgus angulation of the knees.
== END 2023-11-08 09:25 | disposition home or self-care (01) ==
LOC: HO.HOSX 09:24
PROVIDERS: Visit Provider Physician Assistant
DX: M17.11 Unilateral primary osteoarthritis, right knee (principal)
CPT/HCPCS: 20610; 73560; 73565; 99202; J1020

== ENCOUNTER 2023-11-08 09:59 | Outpatient (AMB) | payer OTHER, SELFPAY ==
[2023-11-08 10:01] VITALS: BMI 32.9
--- NOTE | 2023-11-08 10:01 | MHC.OFFVIS ---
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 Patient reports off and on pain for more than 2 months . No hx of Injury. He states that his pain is on the medial aspect of the knee. Hx of NSAIDs/Tylenol no relief. Hx of icing with no relief. Pain is worse when walking and using the stairs. 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 The patient presented to the ED on 10/02/2023 with a compliant of right knee for 4 days (09/28/2023). X-rays were obtained. He was given an RAJIV wrap with crutches and referred to Orthopedics. While in the office today the patient reports intermittent pain for more than 2 months. He does not recall any injury. He claims the pain is on the medial aspect of the knee. He states the pain is worse with ambulating and use of stairs. He confirms the use of NSAID?s/Tylenol and ice with no relief. [facility] Medical History (Updated 11/08/23 @ 11:35 by Nely Merida) Psychosis Hard of hearing Persecution, delusion Anxiety History of COVID-19 Elevated cholesterol Mass of anus High BMI HTN (hypertension) Diabetes Asthma Surgical History History of excision of mass H/O colonoscopy Hx of umbilical hernia repair History of knee surgery Family History Mother Breast cancer Social History Household Members: Spouse and Other Household Members Other:: 4 children Housing: House Do you presently have visiting nurse or other home services: No Alcohol intake: current Alcohol intake frequency: holidays/special occasions only Patient Tobacco Use Status: Never used Tobacco e-Cigarette/Vaping Use: Never Used service: No Sexual orientation: Decline to Answer Review of Systems Const All systems reviewed & are unremarkable except as noted in HPI and below Physical Exam Vital Signs: BMI result Body Mass Index 32.9 Const General: cooperative and no acute distress Orientation/consciousness: patient oriented x3 Resp Effort & Inspection: normal respiratory effort and able to speak in complete sentences Cardio Peripheral pulses: Peripheral pulses 2+ throughout Skin General skin exam: no rashes or lesions noted Neuro General: patient oriented x3 Extrem Other: Right knee: Varus deformity. Tenderness to palpation medial joint line. ROM is 0-110 degrees with crepitus. NVI. Office Procedures Joint Injection/Drain Joint Injection/Drain Primary Site: right knee Prep: site was prepped using aseptic technique, ethochloride spray was applied and injection warnings given Injected: 40 mg of, DepoMedrol, with 8 mL of (2% plain lido ) and in the joint Approach Used: anterolateral Procedure: The patient tolerated the procedure well, but had some pain with the injection and there was some relief with the local anesthesia Coding 51426 - Large joint Procedure code (CPT) selection complete Assessment & Plan Assessment & Plan (1) Osteoarthritis of right knee: Code(s): M17.11 - Unilateral primary osteoarthritis, right knee Qualifiers: Osteoarthritis type: unspecified Qualified Code(s): M17.11 - Unilateral primary osteoarthritis, right knee (2) Diabetes: Comment: taking metformin Code(s): E11.9 - Type 2 diabetes mellitus without complications Plan Mr. Mccauley is a 58-year-old male, who is Kuwaiti speaking, presents in the office today for an evaluation of right knee pain. The patient presented to the ED on 10/02/2023 with a compliant of right knee for 4 days (09/28/2023). X-rays were obtained. He was given an RAJIV wrap with crutches and referred to Orthopedics. While in the office today the patient reports intermittent pain for more than 2 months. He does not recall any injury. He claims the pain is on the medial aspect of the knee. He states the pain is worse with ambulating and use of stairs. He confirms the use of NSAID?s/Tylenol and ice with no relief. The patient was offered a cortisone injection in the right knee with 40 mg of DepoMedrol. The patient was explained the risk, benefits, and alternatives to receiving this injection. After receiving consent for the injection, the patient had the procedure done while in office today. The patient tolerated the procedure well with no complications. Due to the patient?s history of diabetes, they were instructed to monitor his blood glucose level. The patient was informed that they could see a rise in their numbers and if the numbers became too high, they were instructed to call their PCP. The patient was also informed that they could have facial flushing as a side effect of the injection but this will pass. The patient will give the injection one week to see if he gets any relief. In the event he does not he will call the office and we will contact his insurance to obtain approval for Gel injections. I did briefly discuss surgical intervention with him, but we would like to exacerbate all conservative treatment before that is discussed further. Follow up will be PRN, or sooner if needed. X-rays of the right knee which were obtained while in the office today and were reviewed by me, Merle Inman PA-C, revealed significant osteoarthritis bilateral knees, No acute fracture or dislocation. Orders: Orders XR knee standing BI Today M25.569 - Pain in unspecified knee XR knee RT 1V Today M25.569 - Pain in unspecified knee Patient Instructions: Scribed by Nely Merida, biomedical repair technician, for Merle Inman PA-C on 11/08/2023 at 10:12 am, EST. Coding Level of Care Code New Pt Level 4 (17743) Diagnoses Osteoarthritis of right knee, unspecified osteoarthritis type M17.11 Osteoarthritis type: unspecified Diabetes E11.9 CPT Codes Coding - 49068 Large joint: 03919 - Large joint ([id number])
== END 2023-11-08 10:52 | disposition home or self-care (01) ==
PROVIDERS: PCP Family Medicine; Visit Provider Physician Assistant
DX: M17.11 Unilateral primary osteoarthritis, right knee (principal); E11.9 Type 2 diabetes mellitus without complications
CPT/HCPCS: 20610; 99204

== ENCOUNTER → 2023-11-22 | Outpatient (REF) | payer OTHER, SELFPAY | LOC: HO.SL | PROVIDERS: Visit Provider Family Medicine | DX: G47.9 Sleep disorder, unspecified (principal); I10 Essential (primary) hypertension | CPT/HCPCS: 95810 ==

== ENCOUNTER 2023-11-25 | Outpatient (REF) | payer OTHER, SELFPAY ==
--- NOTE | ~2023-11-25 | MR_ITS ---
EXAMINATION: MR BRAIN WITHOUT CONTRAST CLINICAL INFORMATION: Mild cognitive impairment and memory problems. COMPARISON: Head CT dated 09/04/2023. TECHNIQUE: Multiplanar, multisequence imaging of the brain was performed without contrast. FINDINGS: No diffusion abnormalities are identified to suggest an acute infarct. The ventricles are normal in size. No mass effect or midline shift is seen. Mild scattered white matter signal changes are nonspecific and may be due to chronic microangiopathy. 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 No extra-axial fluid collections are seen. The brainstem is normal. Mild generalized brain parenchymal volume loss noted. The gradient refocused acquisition is normal. The craniovertebral junction, marrow signal, and midline structures are normal. The major intracranial flow voids at the level of the native of [place] are preserved. The dural venous sinus flow voids are maintained. The mastoid air cells are well aerated. There is mild mucosal thickening in the paranasal sinuses. 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 MR/MR head/brain wo con IMPRESSION: No acute process. Mild generalized brain parenchymal volume loss and chronic white matter microangiopathy. 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
== END 2023-11-25 00:01 | disposition home or self-care (01) ==
LOC: HO.MRI
PROVIDERS: PCP Family Medicine; Visit Provider Psychiatry & Neurology Neurology
DX: G31.84 Mild cognitive impairment of uncertain or unknown etiology (principal)
CPT/HCPCS: 70551

== ENCOUNTER 2024-02-18 12:54 | Outpatient (AMB) | payer OTHER, SELFPAY ==
--- NOTE | 2024-02-18 13:07 | A.OFFVIS_ITS ---
Intake Visit Reasons: erectile dysfunction Intake Note: NEW Patient presents today to established treatment for: ED Meds- None Allergies to Antibiotic- No Known Allergies Blood Thinner- None Monogram Operator Required: Yes Accompanied by: Significant Other Allergies No Known Allergies Allergy (Verified 02/18/24 13:07) Medication List - Last Reconciled 02/18/24 by Gabriela Kim MD acetaminophen (Tylenol Extra Strength) 500 mg PO Q6H PRN aspirin 81 mg PO DAILY 30 days blood pressure test kit-large As directed blood sugar diagnostic As directed blood-glucose meter As directed docusate sodium (Colace) 100 mg PO BID PRN hydrocortisone 1% 1 appl topical DAILY metformin 1,000 mg PO BID nystatin 1 appl topical TID risperidone 3 mg PO BEDTIME 30 days tadalafil (Cialis) 5 mg PO DAILY trazodone 50 mg PO BEDTIME 30 days HPI Comments Details: Oz is a 58-year-old Irish-speaking male who is here with his who interprets for him. He states that he has had problems with erections for over 4 years. He states that he previously received testosterone injections by a urologist here at each . He has comorbidity diabetes. He has been diabetic for over 10 years. I do not see recent PSA in chart. I have discussed checking testosterone, FSH, LH, estradiol and prolactin levels and PSA level. I have discussed trial of Cialis 5 mg daily. Follow-up in 3 months. [facility] Medical History Psychosis Hard of hearing Persecution, delusion Anxiety History of COVID-19 Elevated cholesterol Mass of anus High BMI HTN (hypertension) Diabetes Asthma Surgical History History of excision of mass H/O colonoscopy Hx of umbilical hernia repair History of knee surgery Family History Mother Breast cancer Social History Household Members: Spouse and Other Household Members Other:: 4 children Housing: House Do you presently have visiting nurse or other home services: No Alcohol intake: current Alcohol intake frequency: holidays/special occasions only Patient Tobacco Use Status: Never used Tobacco e-Cigarette/Vaping Use: Never Used service: No Sexual orientation: Decline to Answer Review of Systems Const All systems reviewed & are unremarkable except as noted in HPI and below Reports no additional complaints Eyes Reports no additional complaints ENT Reports no additional complaints Card Reports no additional complaints Resp Reports no additional complaints GI Reports no additional complaints Reports as per HPI Musc Reports no additional complaints Skin/Breast Reports system reviewed and no additional complaints, except as documented Neuro Reports no additional complaints Psych Reports no additional complaints Endo Reports no additional complaints Vasquez/Lymph Reports no additional complaints Aller/Immun Reports no additional complaints Physical Exam Const General: healthy appearing, no acute distress and well developed Orientation/consciousness: patient oriented x3 HEENT Head: Yes normocephalic and Yes atraumatic Eyes Conjunctivae: conjunctivae normal Neck Neck: Yes normal visual inspection Chest Chest palpation & inspection: normal inspection of the chest Resp Effort & Inspection: normal respiratory effort Cardio Rate: regular rate GI Inspection: Yes normal to inspection Skin General skin exam: no rashes or lesions noted Neuro General: patient oriented x3 Extrem General: No pedal edema Psych Appearance: grossly normal Affect: normal affect Results AMB Urinalysis, Automated UA Leukoctes 0 Francisco/uL Last Edit by CHRISTA Cardenas on 02/18/24 13:16 UA Nitrite Negative Last Edit by CHRISTA Cardenas on 02/18/24 13:16 UA Urobilinogen 0.2 mg/dL Last Edit by CHRISTA Cardenas on 02/18/24 13:1 6 UA Protein 0 mg/dL Last Edit by CHRISTA Cardenas on 02/18/24 13:16 UA pH 6.0 Last Edit by CHRISTA Cardenas on 02/18/24 13:16 UA Blood 0 Abimael/uL Last Edit by CHRISTA Cardenas on 02/18/24 13:16 UA Specific [place] 1.010 Last Edit by Karollevar Roosevelt, RMA on 02/18/24 13: 16 UA Ketone Negative Last Edit by Kattymitch Roosevelt, RMA on 02/18/24 13:16 UA Bilirubin 0 mg/dL Last Edit by Kattymitch Roosevelt, RMA on 02/18/24 13:16 UA Glucose 1000 mg/dL Last Edit by Maribel Albert, A on 02/18/24 13:16 3+ Maribel Albert 02/18/24 13:16 Results Reviewed Results Reviewed: Laboratory Last Values Urine pH (Auto) 6.0 02/18/24 13:14 Specific [place] (Auto) 1.010 02/18/24 13:14 Urine Protein (Auto) 0 mg/dL 02/18/24 13:14 Glucose (UA)(Auto) 1000 mg/dL 02/18/24 13:14 Urine Ketones (Auto) Negative 02/18/24 13:14 Urine Blood (Auto) 0 Abimael/uL 02/18/24 13:14 Urine Nitrite (Auto) Negative 02/18/24 13:14 Urine Bilirubin (Auto) 0 mg/dL 02/18/24 13:14 Urine Urobilinogen (Auto) 0.2 mg/dL 02/18/24 13:14 Leukocyte Esterase (Auto) 0 Francisco/uL 02/18/24 13:14 Assessment & Plan Assessment & Plan (1) Diabetes: Comment: taking metformin Code(s): E11.9 - Type 2 diabetes mellitus without complications Category: Medical (2) Erectile dysfunction: Code(s): N52.9 - Male erectile dysfunction, unspecified Category: Medical (3) Low testosterone: Code(s): R79.89 - Other specified abnormal findings of blood chemistry Category: Medical (4) Screening PSA (prostate specific antigen): Code(s): Z12.5 - Encounter for screening for malignant neoplasm of prostate Category: Medical Plan Cialis 5 mg daily. Blood work for free and total testosterone, LH, FSH, estradiol, fasting glucose Orders: Orders AMB Urinalysis Automated Today Z13.9 - Encounter for screening, unspecified Estradiol Ultra Sensitive Today R79.89 - Other specified abnormal findings of blood chemistry PSA,Total (Free>4and<10) Today Z12.5 - Encounter for screening for malignant neoplasm of prostate Follicle Stimulating Hormone Today R79.89 - Other specified abnormal findings of blood chemistry Glucose Fasting Today R79.89 - Other specified abnormal findings of blood chemistry Testosterone, Free/Total Today R79.89 - Other specified abnormal findings of b lood chemistry Lutenizing Hormone Today R79.89 - Other specified abnormal findings of blood chemistry Medications: New tadalafil (Cialis) [id number] [facility] [id number] Member [id number] 5 mg PO DAILY 30 tabs 3RF Coding Level of Care Code New Pt Level 4 (68320) Diagnoses Diabetes E11.9 Erectile dysfunction N52.9 Low testosterone R79.89 Screening PSA (prostate specific antigen) Z12.5
== END 2024-02-18 13:52 | disposition home or self-care (01) ==
PROVIDERS: PCP Family Medicine; Visit Provider Urology
DX: E11.9 Type 2 diabetes mellitus without complications (principal); N52.9 Male erectile dysfunction, unspecified; R79.89 Other specified abnormal findings of blood chemistry; Z12.5 Encounter for screening for malignant neoplasm of prostate; Z13.9 Encounter for screening, unspecified
CPT/HCPCS: 99204

== ENCOUNTER → 2024-02-18 12:54 | Outpatient (BNVA) | payer OTHER, SELFPAY | PROVIDERS: PCP Family Medicine; Visit Provider Urology | DX: E11.69 Type 2 diabetes mellitus with other specified complication (principal); N52.1 Erectile dysfunction due to diseases classified elsewhere; R79.89 Other specified abnormal findings of blood chemistry; Z12.5 Encounter for screening for malignant neoplasm of prostate | CPT/HCPCS: 81003; 99202 ==

== ENCOUNTER 2024-04-01 15:13 | Outpatient (REF) | payer OTHER, SELFPAY ==
[2024-04-01 16:32] LABS: Glucose Fasting 284 mg/dL (60-99)
[2024-04-01 16:53] LABS: PSA,Total (Free>4and<10) 0.37 ng/mL (0.00-4.00)
[2024-04-02 06:53] LABS: Follicle Stimulating Hormone 18.4 mIU/mL (1.4-12.8); Lutenizing Hormone 5.7 mIU/mL (1.5-9.3)
[2024-04-05 22:04] LABS: Testosterone, Free 38.2 pg/mL (35.0-155.0); Testosterone, Total 211 ng/dL (250-1100)
[2024-04-08 07:58] LABS: Estradiol Ultra Sensitive 25 pg/mL (< OR = 29)
== END 2024-04-01 15:14 | disposition home or self-care (01) ==
LOC: HO.HHCL 15:13
PROVIDERS: Visit Provider Urology
DX: R79.89 Other specified abnormal findings of blood chemistry (principal); Z12.5 Encounter for screening for malignant neoplasm of prostate
CPT/HCPCS: 36415; 82670; 82947; 83001; 83002; 84153; 84402; 84403

== ENCOUNTER 2024-06-22 15:16 | Emergency (ER) | payer OTHER, SELFPAY ==
--- NOTE | ~2024-06-22 | XR_ITS ---
EXAMINATION: XR LUMBOSACRAL SPINE CLINICAL INFORMATION: Right-sided low back pain COMPARISON: None available. TECHNIQUE: Three views of the lumbosacral spine. FINDINGS: Some minimal degenerative changes are present in the spine with predominantly some mild endplate changes with some sclerosis and minimal osteophytes. Vertebral body heights are well-maintained. There is minimal disc space narrowing at L4-L5. No fractures or bony destructive lesions. Moderate stool is present in the colon. XR/XR lumbar spine 2-3V IMPRESSION: Minimal degenerative changes as described above. No acute finding. Electronically signed by: Jose Bey MD 06/22/2024 04:47 PM EDT
[2024-06-22 15:43] VITALS: BP 134/73; PULSE 91; RESP 20; TEMP 36.3; O2SAT 98; BMI 35.8
--- NOTE | 2024-06-22 15:46 | ED.GENADULT ---
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 Patient has had pain for the last 2 days. His pain [place] He states that while walking for long periods he developed right lower back pain The pain does not radiate but is worse with walking. Denies any abdominal pain nausea vomiting. Denies any numbness tingling, bladder or bowel incontinence Denies any blood in the urine Related Data Home Medications ?Medication ?Instructions ?Recorded ?Confirmed blood pressure test kit-large #1 ea 01/26/21 02/18/24 blood sugar diagnostic #10 ea 01/26/21 02/18/24 blood-glucose meter #1 ea 01/26/21 02/18/24 hydrocortisone 1 % topical cream 1 appl topical DAILY 01/26/21 02/18/24 metformin 1,000 mg tablet 1,000 mg PO BID 01/26/21 02/18/24 Previous Rx's ?Medication ?Instructions ?Recorded nystatin 100,000 unit/gram topical 1 appl topical TID #30 grams 01/19/21 ointment aspirin 81 mg tablet,delayed 81 mg PO DAILY 30 days #30 tabs 09/19/23 release docusate sodium 100 mg capsule 100 mg PO BID PRN constipation #60 09/19/23 (Colace) caps risperidone 3 mg tablet 3 mg PO BEDTIME 30 days #30 tabs 09/19/23 trazodone 50 mg tablet 50 mg PO BEDTIME 30 days #30 tabs 09/19/23 acetaminophen 500 mg tablet 500 mg PO Q6H PRN pain #30 tabs 10/02/23 (Tylenol Extra Strength) tadalafil 5 mg tablet (Cialis) 5 mg PO DAILY #30 tabs 02/18/24 cyclobenzaprine 10 mg tablet 10 mg PO TID PRN muscle spasm #15 06/22/24 tabs Allergies Allergy/AdvReac Type Severity Reaction Status Date / Time No Known Allergies Allergy Verified 06/22/24 15:44 Review of Systems Constitutional: Constitutional: Denies body ache(s), Denies chills and Denies headache(s) Eyes: Eyes: Denies blurry vision ENT: Denies headache(s) Cardiovascular: Cardiovascular: Denies chest pain and Denies dyspnea Respiratory: Respiratory: Denies cough and Denies dyspnea Gastrointestinal: Gastrointestinal: Denies abdominal pain Musculoskeletal: Musculoskeletal: Reports back pain, Denies numbness and Denies tingling Integumentary/Breasts: Skin/Breast: Denies rash Neurologic: Denies headache(s), Denies numbness, Denies tingling and Denies paresthesias [facility] Past Medical History Medical History Psychosis Hard of hearing Persecution, delusion Anxiety History of COVID-19 Elevated cholesterol Mass of anus High BMI HTN (hypertension) Diabetes Asthma Surgical History History of excision of mass H/O colonoscopy Hx of umbilical hernia repair History of knee surgery Family History Family History Mother Breast cancer Social History Social History Household Members: Spouse and Other Household Members Other:: 4 children Housing: House Do you presently have visiting nurse or other home services: No Alcohol intake: current Alcohol intake frequency: holidays/special occasions only Patient Tobacco Use Status: Never used Tobacco e-Cigarette/Vaping Use: Never Used Advance Directives: No Advance Directives Information Provided: No service: No Sexual orientation: Decline to Answer Physical Exam ED Vital Signs: Vital Signs - 24 hr 06/22/24 15:43 06/22/24 20:02 Temperature 97.4 F 97.4 F Pulse Rate 91 91 Respiratory Rate 20 20 Blood Pressure 134/73 134/73 Pulse Oximetry 98 98 Oxygen Delivery Method Room Air Room Air BMI result Body Mass Index 35.8 Const General: healthy appearing, comfortable, no acute distress, alert and awake Nutritional Appearance: well nourished Orientation/consciousness: patient oriented x3 HENMT Head: Yes normocephalic and Yes atraumatic Eyes Eyelids: Yes eyelids normal Conjunctivae: conjunctivae normal Sclerae: sclerae normal Corneas: corneas normal Pupils: Equal, round and reactive pupils present EOM: EOMs intact bilaterally Neck Neck: Yes full ROM Resp Effort & Inspection: normal respiratory effort, able to speak in complete sentences and not labored GI Inspection: No distended Palpation (GI): Soft to palpation, not firm, nontender, no guarding and not rigid Back/Spine/Pelvis Other: Tenderness to palpation of the right lumbar paraspinous region. No vertebral tenderness. Straight leg raise negative bilaterally Skin General skin exam: elasticity normal Neuro General: patient oriented x3 Cranial nerves: Yes Equal, round and reactive pupils present and Yes Bilaterally intact EOM present Cognition (Neuro): normal cognition Motor exam (neuro): 5/5 motor strength present throughout Extrem Other: Moving all extremities well without any obvious deformities Course Course Course Narrative: RME: Done by SHERON Do. [age] year male presents ED right-sided low back pain is worse on movement without any trauma. Patient denies any urinary/bowel incontinence. Patient denies any urinary complaints. Positive for right muscular back pain and mild spine tenderness. X-ray UA ordered Medications Administered Discontinued Medications Generic Name Dose Route Start Last Admin Trade Name Freq PRN Reason Stop Dose Admin Ketorolac Tromethamine 30 mg 06/22/24 19:06 06/22/24 19:16 Ketorolac Tromethamine 30 Mg/Ml Vial IM 06/22/24 19:07 30 mg ONCE ONE Administration Medical Decision Making Medical Decision Making [facility] Narrative: 58-year-old male presents for evaluation of right lower back pain [place]. He has a reassuring physical exam. No warning signs for cauda equina syndrome. X-ray shows mild arthritis. The patient has no abdominal pain, GI or symptoms. Likely just musculoskeletal origin, will discharge with cyclobenzaprine and NSAIDs Differential Diagnosis Differential Diagnoses: The differential diagnosis associated with the presentation includes Muscle strain Back pain Radiculopathy Disc herniation Sciatica Lumbar arthritis Degenerative disc disease Lab Data Labs: Lab Results 06/22/24 Range/Units 18:34 Urine Color Yellow Urine Appearance Clear Urine pH 5.5 (5.0-9.0) Ur Specific [place] 1.025 (1.005-1.025) Urine Protein Negative (Neg-Trace) mg/dL Urine Glucose (UA) >=1000 H (Negative) mg/dL Urine Ketones Negative (Negative) mg/dL Urine Blood Negative (Negative) Urine Nitrite Negative (Negative) Ur Leukocyte Esterase Negative (Negative) Urine RBC 0-2 (0-2) /HPF Urine WBC 0-5 (0-5) /HPF Ur Squamous Epith Cells 0-2 (0-2) /HPF Urine Bacteria None Seen (None Seen) Hyaline Casts 0-2 (0-2) /LPF Independent Interpretation I performed an independent interpretation of an: Plain X-Ray (Agree with Radiology interpretation) Radiology Impression Discussion of test interpretation with radiology: I have reviewed the radiologist's reading. Radiologist Impression: FINDINGS: Some minimal degenerative changes are present in the spine with predominantly some mild endplate changes with some sclerosis and minimal osteophytes. Vertebral body heights are well-maintained. There is minimal disc space narrowing at L4-L5. No fractures or bony destructive lesions. Moderate stool is present in the colon. XR/XR lumbar spine 2-3V IMPRESSION: Minimal degenerative changes as described above. No acute finding. Discharge Plan Discharge Clinical Impression: Acute right-sided low back pain Patient Disposition: Home, Self-Care Instructions: Acute Low Back Pain (ED) Additional Instructions: Your x-ray showed mild arthritis of your lumbar spine. Use ibuprofen/Tylenol for pain. Use cyclobenzaprine as needed for muscle spasms This may make you drowsy, do not drink alcohol or drive taking it Prescriptions: New cyclobenzaprine 10 mg tablet 10 mg PO TID PRN (Reason: muscle spasm) Qty: 15 0RF No Action nystatin 100,000 unit/gram ointment 1 appl topical TID Qty: 30 0RF trazodone 50 mg Tablet 50 mg PO BEDTIME 30 Days Qty: 30 0RF risperidone 3 mg tablet 3 mg PO BEDTIME 30 Days Qty: 30 0RF aspirin 81 mg tablet,delayed release (DR/EC) 81 mg PO DAILY 30 Days Qty: 30 0RF docusate sodium [Colace] 100 mg capsule 100 mg PO BID PRN (Reason: constipation) Qty: 60 2RF acetaminophen [Tylenol Extra Strength] 500 mg tablet 500 mg PO Q6H PRN (Reason: pain) Qty: 30 0RF metformin 1,000 mg tablet 1,000 mg PO BID (DME) blood sugar diagnostic Strip See Rx Instructions Not Applicable .MEDSUPPLY Qty: 10 Rx Instructions: As directed hydrocortisone 1 % cream 1 appl topical DAILY (DME) blood pressure test kit-large Kit See Rx Instructions .ROUTE .MEDSUPPLY Qty: 1 Rx Instructions: As directed (DME) blood-glucose meter Kit See Rx Instructions Not Applicable .MEDSUPPLY Qty: 1 Rx Instructions: As directed tadalafil [Cialis] 5 mg tablet 5 mg PO DAILY Qty: 30 3RF Rx Instructions: [id number] [facility] [place] [id number] Member [id number] Interventions: ED Discharge Assessment Last Done: 06/22/24 20:02 Discharge Date/Time: 06/22/24 20:02 Print Language: [place]an
[2024-06-22 18:44] LABS: Appearance Urine Clear; Color Urine Yellow; Glucose Urine UA >=1000 mg/dL (Negative); Leukocyte Esterase Urine Negative (Negative); Nitrite Urine Negative (Negative); PH 5.5 (5.0-9.0); Specific Gravity - Urine 1.025 (1.005-1.025); UMIC TRIGGER UACC YES; Urine Blood Negative (Negative); Urine Ketones Negative (Negative); Urine Protein Negative (Neg-Trace)
[2024-06-22 18:49] LABS: Bacteria Urine None Seen (None Seen); Hyaline Casts Urine 0-2 /LPF (0-2); RBC Urine 0-2 /HPF (0-2); Squamous Epithelial Cell Urine 0-2 /HPF (0-2); WBC Urine 0-5 /HPF (0-5)
[2024-06-22] MEDS: Ketorolac Tromethamine 30 MG/ML VIAL IM (19:16)
[2024-06-22 20:02] VITALS: BP 134/73; PULSE 91; RESP 20; TEMP 36.3; O2SAT 98
== END 2024-06-22 20:02 | disposition home or self-care (01) ==
PROVIDERS: Physician Assistant; Emergency Provider Emergency Medicine; PCP Family Medicine
DX: M54.50 Low back pain, unspecified (principal); Z79.899 Other long term (current) drug therapy
CPT/HCPCS: 72100; 81001; 96372; 99283; 99284; J1885

== ENCOUNTER 2025-02-26 11:01 | Outpatient (REF) | payer OTHER, SELFPAY ==
--- OUTSIDE RECORDS SUMMARY | 2025-02-26 11:31 | XMS_ITS | Encounter Summary ---
Author Organization [employer] Address [address] [facility] 7[address] [place] [address] Care Team Providers Care Floor Clerk Name Role Phone Katelyn Vance MD Primary Care Provider [phone] Micky Vasquez PharmD Unavailable [phone] Encounter Details Date Type Department Care Team (Late st Contact Info) Description 11/16/2023 Orders Only [facility] MEDICINE [address] [place], [place] [phone] Katelyn Vance MD [address] [place], [place] [phone] Social History Tobacco Use Types Packs/Day Years Used Date Smoking Tobacco: Former Cigarettes Q uit: 12/07/1982 Passive Smoke Exposure: Past Smokeless Tobacco: Never Alcohol Use Standard Drinks/Week Comments Not Currently 0 (1 standard drink = 0.6 oz pur e alcohol) Depression Answer Date Recorded Patient Health Questionnaire-9 Score 6 11/06/2023 Patient Health Questionnaire-9 Score 6 11/06/2023 Last PHQ-9: Questionnaire Data Not on file 0 11/06/2023 Housing Stability Answer Date Recorded What is your housing situation today? I have [place] 07/18/[address] you li ve. Do you have problems with any of the following? None of the above 07/18/2023 Food Insecurity Answer Date Recorded Within the past 12 months, y ou worried that your food would run out before you got money to buy more: Never True 07/18/2023 Within the past 12 months,th e food you bought just didn't last and you didn't have enough money to get more: Never True Transportation Answer Date Recorded In the past 12 months, has l ack of transportation kept you from medical appts, meetings, work or from getting things needed for daily living? No 07/18/2023 Utilities Answer Date Recorded In the past 12 months, has t he electric, gas, oil or water company threatened to shut off services in your home? No 07/18/2023 Depression Answer Date Recorded Patient Health Questionnaire-2 Score 1 11/06/2023 Sex and Gender Information Value Date Recorded Sex Assigned at Male 07/31/2022 10:16 AM EDT Legal Sex Male 10:16 AM EDT Gender Identity Male 07/31/2022 10:16 AM EDT Sexual Orientation Choose not to disclose 2021 10:16 AM EDT documented as of this encounter Plan of Treatment Upcoming Encounters Date Type Department Care Team (Late st Contact Info) Description 04/06/2025 11:30 AM EDT Medication Management [facility] MEDICINE [address] [place] [address] Micky Vasquez, PharmD [address] [place] [address] documented as of this encounter Goals Goal Patient Goal Type Associated Problems Recent Progress Patient-Stated? Author Blood Pressure < 140/90 Blood Pressure 118/80(2024 10:17 AM EDT) No Dariusz Jackson Hemoglobin A1c < 7 Result Component 7.9( 12:06 PM EDT) No Dariusz Jackson documented as of this encounter Procedures Procedure Name Priority Date/Time Associated Diagnosis Comments MR BRAIN WO CONTRAST Routine 11/25/2023 12:20 PM EST documented in this encounter Results * MR Brain w/o Contrast (11/25/2023 12:20 PM EST) Anatomical Region Laterality Modality Brain Magnetic Resonan ce 11/25/2023 12:2 0 PM EST Narrative 11/27/2023 12:48 PM EST ? [facility] ?[address] ?[place] [address] ? Magnetic Resonance Report ? Signed ? Patient: Mccauley,Oz ?MR#: [id number] ? : 1965 ?Acct:[id number] ? Age/Sex: 58 / M ?ADM Date: 11/25/23 ? Loc: HO.MRI ? Attending Dr: Cally Forbes MD ? Ordering Physician: Cally Forbes MD ?? Date of Service: 11/25/23 ?? Procedure(s): MR head/brain wo con ?? Accession Number(s): [id number] ? cc: Cally Forbes MD; Katelyn Vance MD ? EXAMINATION: ?? MR BRAIN WITHOUT CONTRAST ? CLINICAL INFORMATION: ?? Mild cognitive impairment and memory problems. ? COMPARISON: ?? Head CT dated 09/04/2023. ? TECHNIQUE: ?? Multiplanar, multisequence imaging of the brain was performed without ?? contrast. ? FINDINGS: ?? No diffusion abnormalities are identified to suggest an acute infarct. ?? The ventricles are normal in size. No mass effect or midline shift is ?? seen. Mild scattered white matter signal changes are nonspecific and ?? may be due to chronic microangiopathy. There is a small chronic infarct ?? in the left cerebellar hemisphere. No extra-axial fluid collections are ?? seen. The brainstem is normal. Mild generalized brain parenchymal ?? volume loss noted. ? The gradient refocused acquisition is normal. The craniovertebral ?? junction, marrow signal, and midline structures are normal. The major ?? intracranial flow voids at the level of the [place] are ?? preserved. The dural venous sinus flow voids are maintained. The ?? mastoid air cells are well aerated. There is mild mucosal thickening in ?? the paranasal sinuses. 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 ? MR/MR head/brain wo con ?? IMPRESSION: ?? No acute process. Mild generalized brain parenchymal volume loss and ?? chronic white matter microangiopathy. 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 ? Dictated By: ?NIGHAT UMANA MD ? Signed By: ?<Electronically signed by NIGHAT UMANA MD in OV> ?11/27/ 1244 ? DD/DT: 11/25/ 1220 ? TD/TT: ? Pet Walker: DZ ? Procedure Note Donotuseinterpreter, Image - 11/27/[address] [address] Magnetic Resonance Report Signed Patient: Oz MccauleyMR#: [id number] : 1965Acct:[id number] Age/Sex: 58 / MADM Date: 11/25/23 Loc: HO.MRI Attending Dr: Cally Forbes MD Ordering Physician: Cally Forbes MD Date of Service: 11/25/23 Procedure(s): MR head/brain wo con Accession Number(s): [id number] cc: Cally Forbes MD; Katelyn Vance MD EXAMINATION: MR BRAIN WITHOUT CONTRAST CLINICAL INFORMATION: Mild cognitive impairment and memory problems. COMPARISON: Head CT dated 09/04/2023. TECHNIQUE: Multiplanar, multisequence imaging of the brain was performed without contrast. FINDINGS: No diffusion abnormalities are identified to suggest an acute infarct. The ventricles are normal in size. No mass effect or midline shift is seen. Mild scattered white matter signal changes are nonspecific and may be due to chronic microangiopathy. 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 No extra-axial fluid collections are seen. The brainstem is normal. Mild generalized brain parenchymal volume loss noted. The gradient refocused acquisition is normal. The craniovertebral junction, marrow signal, and midline structures are normal. The major intracranial flow voids at the level of the [place] are preserved. The dural venous sinus flow voids are maintained. The mastoid air cells are well aerated. There is mild mucosal thickening in the paranasal sinuses. 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 MR/MR head/brain wo con IMPRESSION: No acute process. Mild generalized brain parenchymal volume loss and chronic white matter microangiopathy. 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 Dictated By: NIGHAT UMANA MD Signed By: <Electronically signed by NIGHAT UMANA MD in OV> 11/27/23 1244 DD/ 1220 TD/TT: Pet Walker: REGGIE us [facility] External Provider IMG MRI PROCEDURES Final Result documented in this encounter Visit Diagnoses Not on filedocumented in this encounter Additional Health Concerns Assessment Noted Time PHQ-9 Depression Total Score: 6 11/06/19 24 1:44 PM EST documented as of this encounter Care Teams Floor Clerk Relationship Specialty Start Date End Date Katelyn Vance MD [address] [place] [address] PCP - General Family Medicine 10/01/18 Micky Vasquez, CorbyD [address] [place] [address] Pharmacist Internal Medicine 12/10/23 documented as of this encounter
[2025-02-26 14:14] LABS: Alanine Aminotransferase 28 U/L (0-40); Albumin Level 4.3 g/dL (3.5-5.0); Alkaline Phosphatase 88 U/L (39-117); Anion Gap 13 (12-20); Aspartate Amino Transferase 30 U/L (5-37); Bilirubin Direct 0.2 mg/dL (0.0-0.5); Bilirubin Total 0.4 mg/dL (0.0-1.0); Blood Urea Nitrogen 16 mg/dL (9-16); Calcium 9.9 mg/dL (8.4-10.2); Carbon Dioxide 27 mmol/L (22-29); Chloride 103 mmol/L (96-108); Cholesterol 95 mg/dL (<200); Estimated Glomerular Filt Rate > 60; Glucose Random 141 mg/dL (60-115); HDL Cholesterol 30 mg/dL (>40); LDL Cholesterol Calculated 33 mg/dL (<100); Potassium 4.1 mmol/L (3.3-5.1); Sodium 139 mmol/L (135-145); Total Protein 7.6 g/dL (6.5-8.0); Triglycerides 160 mg/dL (<150)
[2025-02-26 14:21] LABS: Creatinine Urine 67.36 mg/dL; Microalbumin Urine < 5.0 mg/L
[2025-02-26 14:23] LABS: Vitamin B12 575 pg/mL (200-900)
[2025-02-26 14:29] LABS: HIV AB/AG Nonreactive (Nonreactive); HIV Num 1 0.07 S/CO (0.00-0.99); ~HepC Num1 0.11 S/CO (0.00-0.79); ~Hepatitis C Antibody Nonreactive (Nonreactive)
[2025-02-26 14:30] LABS: Syphilis Screen Nonreactive (Nonreactive)
[2025-02-26 15:20] LABS: CT PCR NOT DETECTED (Not Detect.); NG PCR NOT DETECTED (Not Detect.)
[2025-03-01 18:58] LABS: TS Negative Control Passed; TS Panel A 0; TS Panel B 0; TS Positive Control Passed; TSpotTB Negative (Negative)
== END 2025-02-26 11:02 | disposition home or self-care (01) ==
LOC: HO.HHCL 11:01
PROVIDERS: Visit Provider Family Medicine
DX: E11.65 Type 2 diabetes mellitus with hyperglycemia (principal); Z11.3 Encounter for screening for infections with a predominantly sexual mode of transmission; Z11.1 Encounter for screening for respiratory tuberculosis
CPT/HCPCS: 80048; 80061; 80076; 82043; 82570; 82607; 86481; 86780; 86803; 87389; 87491; 87591

== ENCOUNTER 2025-04-08 15:59 | Outpatient (AMB) | payer OTHER, SELFPAY ==
--- OUTSIDE RECORDS SUMMARY | 2025-04-08 16:02 | XMS_ITS | Encounter Summary ---
Author Organization [employer] Address [address] [facility] 7t [place] [address] Care Team Providers Care Financial Compliance Manager Name Role Phone Katelyn Vance MD Primary Care Provider [phone] Micky Vasquez PharmD Unavailable [phone] Encounter Details Date Type Department Care Team (Late st Contact Info) Description 11/16/2023 Orders Only [facility] MEDICINE [address] [place], [place] [phone] Katelyn Vance MD [address] [place], [place] [phone] Social History Tobacco Use Types Packs/Day Years [...] Care Team (Late st Contact Info) Description 07/20/2025 11:30 AM EDT Medication Management [facility] MEDICINE [address] [place] [address] Micky Vasquez, PharmD [address] [place] [address] documented as of this encounter Goals Goal Patient Goal Type Associated Problems Recent Progress Patient-Stated? Author Blood Pressure < 140/90 Blood Pressure 118/64(2024 11:04 AM EDT) No Dariusz Jackson Hemoglobin A1c < 7 Result Component 7.7( 11:13 AM EDT) No Dariusz Jackson documented as of this encounter Procedures Procedure Name Priority Date/Time Associated Diagnosis Comments MR BRAIN WO CONTRAST Routine 11/25/2023 12:20 PM EST documented in this encounter Results * MR Brain w/o Contrast (11/25/2023 12:20 PM EST) Anatomical Region Laterality Modality Brain Magnetic Resonan ce 11/25/2023 12:2 0 PM EST Narrative 11/27/2023 12:48 PM EST [address] [address] Magnetic Resonance Report Signed Patient: Oz Mccauley MR#: [id number] : 1965 Acct:[id number] Age/Sex: 58 / M ADM Date: 11/25/23 Loc: HO.MRI Attending Dr: Cally Forbes MD Ordering Physician: Cally Forbes MD Date of Service: 11/25/23 Procedure(s): MR head/brain wo con Accession Number(s): [id number] cc: Cally Forbes MD; Katelyn Vance MD [...] flow voids at the level of the [place] of [place] are preserved. The dural venous [...] in OV> 11/27/23 1244 DD/ 1220 TD/TT: Cross Country/Track And Field Coach: REGGIE Procedure Note Donotuseinterpreter, Image - 11/27/2023 [place] [address] Magnetic Resonance Report Signed Patient: Oz MccauleyMR#: [id number] : 1965Acct:[id number] Age/Sex: 58 / MADM Date: 11/25/23 Loc: HO.MRI Attending Dr: Cally Forbes MD Ordering Physician: Cally Forbes MD Date of Service: 11/25/23 Procedure(s): MR head/brain wo con Accession Number(s): [id number] cc: Cally Forbes MD; Katelyn Vance MD [...] flow voids at the level of the [place] are preserved. The dural venous [...] in OV> 11/27/23 1244 DD/ 1220 TD/TT: Cross Country/Track And Field Coach: REGGIE [facility] External Provider IMG MRI PROCEDURES Final Result documented in this encounter Visit Diagnoses Not on filedocumented in this encounter Additional Health Concerns Assessment Noted Time PHQ-9 Depression Total Score: 6 11/06/19 24 1:44 PM EST documented as of this encounter Care Teams Financial Compliance Manager Relationship Specialty Start Date End Date Katelyn Vance MD [address] [place] [address] PCP - General Family Medicine 10/01/18 Micky Vasquez, CorbyD [address] [place] [address] Pharmacist Internal Medicine 12/10/23 documented as of this encounter
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
== END 2025-04-08 17:03 | disposition home or self-care (01) ==
LOC: HO.HSM 16:00
PROVIDERS: PCP Family Medicine; Referring Provider Family Medicine; Visit Provider Registered Nurse
DX: F29 Unspecified psychosis not due to a substance or known physiological condition (principal); G31.84 Mild cognitive impairment of uncertain or unknown etiology; I67.89 Other cerebrovascular disease
CPT/HCPCS: 99214

== ENCOUNTER → 2025-04-08 15:59 | Outpatient (BNVA) | payer OTHER, SELFPAY | PROVIDERS: PCP Family Medicine; Referring Provider Family Medicine; Visit Provider Registered Nurse | DX: I67.89 Other cerebrovascular disease (principal); F29 Unspecified psychosis not due to a substance or known physiological condition; F41.9 Anxiety disorder, unspecified | CPT/HCPCS: 99212 ==

== ENCOUNTER 2025-05-22 23:11 | Emergency (ER) | payer OTHER, SELFPAY ==
--- NOTE | ~2025-05-22 | XR_ITS ---
CLINICAL HISTORY: pain constipation 1 view abdomen Comparison: None provided Findings: Mild bibasilar atelectasis/pneumonitis of the partially imaged lung bases. Calcified remnants of old granulomatous process noted including right lower lobe. No small bowel dilatation in the imaged abdomen. Severe stool burden is present, including imaged cecum and including distally. Density about the bladder is nonspecific by radiographs. Degenerative changes include imaged hips and imaged spine. Vascular calcifications noted. IMPRESSION: 1. No small bowel obstruction. 2. Severe stool burden. This document has been electronically signed by: Spenser Hernandez MD on 05/23/2025 01:57:34
[2025-05-22 23:20] VITALS: BP 123/62; PULSE 80; RESP 18; TEMP 36.9; O2SAT 99; BMI 34.2
[2025-05-23 00:09] LABS: Hematocrit 36.8 % (42.0-52.0); Hemoglobin 12.6 g/dl (14.0-18.0); Mean Corpuscular HGB Conc 34.2 g/dl (31.0-36.0); Mean Corpuscular Hemoglobin 30.5 pg (27.0-33.0); Mean Corpuscular Volume 89.1 fL (80.0-98.0); NRBC Abs Auto 0.000 X10*3/uL (0.0-0.012); NRBC Pct Auto 0.0 /100WBC (0.0-0.2); Platelet Count 266 X10*3/uL (160-400); Red Blood Count 4.13 X10*6/uL (4.60-5.80); White Blood Count 8.6 X10*3/uL (4.8-10.8)
[2025-05-23 00:10] LABS: Appearance Urine Clear; Glucose Urine UA Negative (Negative); PH 7.5 (5.0-9.0); Specific Gravity - Urine 1.015 (1.005-1.025)
[2025-05-23 00:24] LABS: Alanine Aminotransferase 9 U/L (0-40); Albumin Level 4.0 g/dL (3.5-5.0); Alkaline Phosphatase 79 U/L (39-117); Anion Gap 14 (12-20); Aspartate Amino Transferase 20 U/L (5-37); Blood Urea Nitrogen 21 mg/dL (9-16); Calcium 9.3 mg/dL (8.4-10.2); Carbon Dioxide 24 mmol/L (22-29); Chloride 105 mmol/L (96-108); Creatinine Clr Calc Pharmacy 76.6; Estimated Glomerular Filt Rate 60; Lipase 29 U/L (8-78); Potassium 3.6 mmol/L (3.3-5.1); Sodium 139 mmol/L (135-145); Total Protein 6.9 g/dL (6.5-8.0)
[2025-05-23 01:30] VITALS: BP 118/58; PULSE 72; RESP 16; TEMP 36.5; O2SAT 98
--- NOTE | 2025-05-23 03:26 | ED.GENADULT ---
HPI - General Adult General Chief complaint: Abdominal Pain Stated complaint: side pain Time Seen by Provider: 05/23/25 01:04 Source: patient Limitations: language barrier History of Present Illness ED Provider: Rebecca Spence PA-C HPI narrative: 59-year-old male with a history of morbid obesity, mild cognitive impairment secondary to cerebral microvascular disease, diabetes, who presents with vague abdominal discomfort for 3-4 days. Pain primarily over lower abdomen, left greater than right. Unable to describe the nature of his discomfort, but does indicate the pain is nonradiating. Associated dysuria. Denies risk for STD, penile discharge, testicular pain or swelling, no redness of the scrotum. Denies nausea vomiting diarrhea. The patient is somewhat constipated, he has been having bowel movements every few days, passing small amounts of stool at a time. Denies distention or inability to pass flatus. Related Data Home Medications ?Medication ?Instructions ?Recorded ?Confirmed blood pressure test kit-large #1 ea 01/26/21 02/18/24 blood sugar diagnostic #10 ea 01/26/21 02/18/24 blood-glucose meter #1 ea 01/26/21 02/18/24 hydrocortisone 1 % topical cream 1 appl topical DAILY 01/26/21 02/18/24 metformin 1,000 mg tablet 1,000 mg PO BID 01/26/21 04/08/25 atorvastatin 40 mg tablet 40 mg PO DAILY 04/08/25 04/08/25 chlorthalidone 25 mg tablet 25 mg PO DAILY 04/08/25 04/08/25 dulaglutide 4.5 mg/0.5 mL mg subcut 04/08/25 04/08/25 subcutaneous pen injector (Trulicity) lisinopril 40 mg tablet 40 mg PO QAM 04/08/25 04/08/25 Previous Rx's ?Medication ?Instructions ?Recorded nystatin 100,000 unit/gram topical 1 appl topical TID #30 grams 01/19/21 ointment aspirin 81 mg tablet,delayed 81 mg PO DAILY 30 days #30 tabs 09/19/23 release docusate sodium 100 mg capsule 100 mg PO BID PRN constipation #60 09/19/23 (Colace) caps risperidone 3 mg tablet 3 mg PO BEDTIME 30 days #30 tabs 09/19/23 trazodone 50 mg tablet 50 mg PO BEDTIME 30 days #30 tabs 12/20/23 acetaminophen 500 mg tablet 500 mg PO Q6H PRN pain #30 tabs 10/02/23 (Tylenol Extra Strength) tadalafil 5 mg tablet (Cialis) 5 mg PO DAILY #30 tabs 02/18/24 cyclobenzaprine 10 mg tablet 10 mg PO TID PRN muscle spasm #15 06/22/24 tabs Allergies Allergy/AdvReac Type Severity Reaction Status Date / Time No Known Allergies Allergy Verified 05/22/25 23:23 Review of Systems Review of Systems: Yes all other systems are reviewed and are negative Constitutional: Constitutional: Denies fatigue and Denies fever(s) Cardiovascular: Cardiovascular: Denies chest pain and Denies dyspnea Respiratory: Respiratory: Denies cough and Denies dyspnea Gastrointestinal: Gastrointestinal: Reports abdominal pain, Reports constipation, Denies diarrhea, Denies nausea and Denies vomiting Genitourinary: Genitourinary: Denies genital pain, Reports dysuria, Denies flank pain, Denies penile discharge and Denies scrotal swelling Endocrine: Endocrine: Denies fatigue PMFSH Past Medical History Attestation statement: The following information was validated with the patient. Medical History (Updated 05/24/25 @ 00:01 by Radhames Kenny) HLD (hyperlipidemia) Cerebral microvascular disease MCI (mild cognitive impairment) Encephalopathy Psychosis Hard of hearing Persecution, delusion Anxiety History of COVID-19 Elevated cholesterol Mass of anus High BMI HTN (hypertension) Diabetes Asthma Surgical History History of excision of mass H/O colonoscopy Hx of umbilical hernia repair History of knee surgery Family History Family History (Updated 04/08/25 @ 14:33 by Maryanne Li MA) Mother Breast cancer Schizophrenia Brother Schizophrenia Social History Social History Household Members: Spouse and Other Household Members Other:: 4 children Housing: House Do you presently have visiting nurse or other home services: No Alcohol intake: current Alcohol intake frequency: holidays/special occasions only Patient Tobacco Use Status: Never used Tobacco e-Cigarette/Vaping Use: Never Used service: No Sexual orientation: Decline to Answer Physical Exam ED Vital Signs: Vital Signs - 24 hr 05/22/25 23:20 08/23/25 01:30 Temperature 98.4 F 97.7 F Pulse Rate 80 72 Respiratory Rate 18 16 Blood Pressure 123/62 118/58 L Pulse Oximetry 99 98 Oxygen Delivery Method Room Air Room Air BMI result Body Mass Index 34.2 Const Other: Alert, well-appearing Orientation/consciousness: patient oriented x3 Resp Effort & Inspection: normal respiratory effort Cardio Other: Normal peripheral perfusion GI Other: Abdomen is soft, nondistended, nontender, no guarding, obese abdomen General: Yes no CVA tenderness Back/Spine/Pelvis Back: no CVA tenderness Skin Other: Warm dry no rash Neuro General: patient oriented x3, gait normal, no focal motor deficits and CN's II-XI intact bilaterally Psych Other: Cooperative Medical Decision Making Medical Decision Making MDM Narrative: 59-year-old male with a history of morbid obesity, mild cognitive impairment secondary to cerebral microvascular disease, diabetes, who presents with vague abdominal discomfort for 3-4 days. Pain primarily over lower abdomen, left greater than right. Unable to describe the nature of his discomfort, but does indicate the pain is nonradiating. Associated dysuria. Denies risk for STD, penile discharge, testicular pain or swelling, no redness of the scrotum. Denies nausea vomiting diarrhea. The patient is somewhat constipated, he has been having bowel movements every few days, passing small amounts of stool at a time. Denies distention or inability to pass flatus. Problem: Diabetes, cognitive impairment History: Per patient I have considered the following differential diagnoses: Constipation, bowel obstruction, UTI, renal colic, urethritis, epididymitis, orchitis Plan: Sounds as if the patient is likely constipated, I have low suspicion for bowel obstruction given lack of distention active vomiting, and he is passing flatus. We will obtain a KUB. Screening labs are in process, the patient is just giving a urine sample now. He could have a concurrent urinary tract infection. He has no back pain or CVA tenderness, has not had flank pain to suggest renal colic. He also has no testicular pain swelling, no penile discharge to suggest an infectious process such as epididymitis orchitis or urethritis. I have independently reviewed the following tests: Labs: No leukocytosis, not anemic, no electrolyte abnormality noted, urine not infected KUB:IMPRESSION: 1. No small bowel obstruction. 2. Severe stool burden. Differential Diagnosis Differential Diagnoses: The differential diagnosis associated with the presentation includes See medical decision-making Admission/Observation Consideration of admission/observation: Escalation of care including admission/observation considered Not applicable Lab Data MDM Lab Attestation statement: I reviewed the patient's lab results. 05/23/25 00:02 05/23/25 00:02 Labs: Lab Results 05/23/25 Range/Units 00:02 WBC 8.6 (4.8-10.8) X10*3/uL RBC 4.13 L (4.60-5.80) X10*6/uL Hgb 12.6 L (14.0-18.0) g/dl Hct 36.8 L (42.0-52.0) % MCV 89.1 (80.0-98.0) fL MCH 30.5 (27.0-33.0) pg MCHC 34.2 (31.0-36.0) g/dl RDW 13.1 (11.0-16.0) % Plt Count 266 (160-400) X10*3/uL MPV 9.7 (9.4-12.4) fL Absolute Nucleated RBC 0.000 (0.0-0.012) X10*3/uL Nucleated RBC % (auto) 0.0 (0.0-0.2) /100WBC Sodium 139 (135-145) mmol/L Potassium 3.6 (3.3-5.1) mmol/L Chloride 105 (96-108) mmol/L Carbon Dioxide 24 (22-29) mmol/L Anion Gap 14 (12-20) BUN 21 H (9-16) mg/dL Creatinine 1.24 (0.5-1.4) mg/dL Estim Creat Clear Calc 76.6 Estimated GFR 60 Random Glucose 142 H (60-115) mg/dL Calcium 9.3 D (8.4-10.2) mg/dL Total Bilirubin 0.4 (0.0-1.0) mg/dL AST 20 (5-37) U/L ALT 9 (0-40) U/L Alkaline Phosphatase 79 (39-117) U/L Total Protein 6.9 (6.5-8.0) g/dL Albumin 4.0 (3.5-5.0) g/dL Lipase 29 (8-78) U/L Urine Color Yellow Urine Appearance Clear Urine pH 7.5 (5.0-9.0) Ur Specific [place] 1.015 (1.005-1.025) Urine Protein Negative (Neg-Trace) mg/dL Urine Glucose (UA) Negative (Negative) mg/dL Urine Ketones Negative (Negative) mg/dL Urine Blood Negative (Negative) Urine Nitrite Negative (Negative) Ur Leukocyte Esterase Negative (Negative) Radiology Impression Discussion of test interpretation with radiology: I have reviewed the radiologist's reading. Discharge Plan Discharge Clinical Impression: Constipation Patient Disposition: Home, Self-Care Instructions: Constipation (ED) Additional Instructions: All of your screening labs were normal. The x-ray revealed that you were severely constipated. See home care instructions. You need to implement an aggressive bowel regimen. You need to use [id number] Colace, this is a stool softener, twice a day. You need to purchase [id number] MiraLax, use it hourly, until you begin having multiple large volume bowel movements. You essentially are performing a bowel prep, as if you were having a colonoscopy. Once you clear your current stool burden, you need to stay on some form of a bowel regimen. You can use Colace daily, and MiraLax daily, to help maintain regularity. Follow up with primary care as needed. Prescriptions: No Action nystatin 100,000 unit/gram ointment 1 appl topical TID Qty: 30 0RF trazodone 50 mg Tablet 50 mg PO BEDTIME 30 Days Qty: 30 0RF risperidone 3 mg tablet 3 mg PO BEDTIME 30 Days Qty: 30 0RF aspirin 81 mg tablet,delayed release (DR/EC) 81 mg PO DAILY 30 Days Qty: 30 0RF docusate sodium [Colace] 100 mg capsule 100 mg PO BID PRN (Reason: constipation) Qty: 60 2RF acetaminophen [Tylenol Extra Strength] 500 mg tablet 500 mg PO Q6H PRN (Reason: pain) Qty: 30 0RF cyclobenzaprine 10 mg tablet 10 mg PO TID PRN (Reason: muscle spasm) Qty: 15 0RF metformin 1,000 mg tablet 1,000 mg PO BID (DME) blood sugar diagnostic Strip See Rx Instructions Not Applicable .MEDSUPPLY Qty: 10 Rx Instructions: As directed hydrocortisone 1 % cream 1 appl topical DAILY (DME) blood pressure test kit-large Kit See Rx Instructions .ROUTE .MEDSUPPLY Qty: 1 Rx Instructions: As directed (DME) blood-glucose meter Kit See Rx Instructions Not Applicable .MEDSUPPLY Qty: 1 Rx Instructions: As directed atorvastatin 40 mg tablet 40 mg PO DAILY chlorthalidone 25 mg tablet 25 mg PO DAILY lisinopril 40 mg tablet 40 mg PO QAM Trulicity 4.5 mg/0.5 mL pen injector subcut tadalafil [Cialis] 5 mg tablet 5 mg PO DAILY Qty: 30 3RF Rx Instructions: [id number] [facility] [id number] Member [id number] Interventions: ED Discharge Assessment Last Done: 05/23/25 03:41 Discharge Date/Time: 05/23/25 03:43 Print Language: [place]ian
[2025-05-23 03:41] VITALS: BP 124/77; PULSE 64; RESP 16; TEMP 36.6; O2SAT 99
== END 2025-05-23 03:43 | disposition home or self-care (01) ==
PROVIDERS: Emergency Provider Emergency Medicine; PCP Family Medicine
DX: K59.00 Constipation, unspecified (principal); R10.2 Pelvic and perineal pain; R30.0 Dysuria; Z79.899 Other long term (current) drug therapy
CPT/HCPCS: 36415; 74018; 80053; 81003; 83690; 85027; 99283; 99284

== ENCOUNTER → 2025-05-23 01:31 | Outpatient (BNV) | payer OTHER, SELFPAY | PROVIDERS: Emergency Provider Emergency Medicine; PCP Family Medicine; Visit Provider Radiology Neuroradiology | DX: K59.00 Constipation, unspecified (principal); R10.9 Unspecified abdominal pain | CPT/HCPCS: 74018 ==